=== PATIENT | female | born 1995 ===

== ENCOUNTER 2020-01-14 10:07 | Emergency (ER) | payer OTHER, SELFPAY ==
[2020-01-14 10:26] VITALS: BP 134/67; PULSE 75; RESP 16; TEMP 36.3; O2SAT 99; BMI 41.0
[2020-01-14] MEDS: Azithromycin 500 MG TABLET 1000 MG PO (12:17)
[2020-01-14] MEDS: cefTRIAXone sodium 250 MG, Lidocaine HCl 1 % MPF 0.9 ML IM (12:18)
[2020-01-14 12:22] LABS: Glucose Urine UA NEG (NEG); Leukocyte Esterase Urine NEG (NEG); Nitrite Urine NEG (NEG); Specific Gravity - Urine <= 1.005 (1.005-1.025); Urine Blood 2+ (NEG); Urine Ketones NEG (NEG); Urine Protein NEG (NEG-TRACE)
[2020-01-14 12:28] LABS: Appearance Urine CLEAR; Color Urine YELLOW
--- NOTE | 2020-01-14 12:52 | ED_ITS ---
HPI - Female Genitourinary General Chief complaint: Urogenital-Female <Riaz Pereira NP - Last Filed: 01/14/20 14:17> Stated complaint: STD <Riaz Pereira NP - Last Filed: 01/14/20 14:17> Time Seen by Provider: 01/14/20 11:15 <Riaz Pereira NP - Last Filed: 01/14/20 14:17> Source: patient <Riaz Pereira NP - Last Filed: 01/14/20 14:17> Mode of arrival: ambulatory <Riaz Pereira NP - Last Filed: 01/14/20 14:17> Limitations: no limitations <Riaz Pereira NP - Last Filed: 01/14/20 14:17> History of Present Illness HPI Narrative: Otherwise healthy 24-year-old female with no past medical/surgical problems not currently taking any medications presenting ambulatory via triage 2 minor Care with complaint of states she was informed this morning by an individual she was sexually active with (male) on he texted her that he tested positive for mycoplasma genitalia <Riaz Pereira NP - Last Filed: 01/14/20 14:17> Related Data Home medications: Previous Rx's Medication Instructions Recorded doxycycline monohydrate 100 mg PO BID 7 Days #14 cap 01/14/20 metronidazole [Flagyl] 500 mg PO BID 7 Days #14 tab 01/16/20 <Riaz Pereira NP - Last Filed: 01/14/20 14:17> Allergies/Adverse reactions: Allergies Allergy/AdvReac Type Severity Reaction Status Date / Time No Known Allergies Allergy Unverified 11/14/19 16:34 [No Known Allergies*] <Riaz Pereira NP - Last Filed: 01/14/20 14:17> Review of Systems Review of Systems: Constitutional: No Weight loss, No Fever, No Chills, No Night Sweats, No Fatigue, No Malaise ENT/Mouth: No Hearing loss, No Ear Pain, No Nasal Congestion Eyes: No Eye Pain, No Swelling, No Redness Cardiovascular: No Chest Pain, No SOB, No Dyspnea on Exertion, No Orthopnea, No Edema, No Palpitations Respiratory: No Cough, No Sputum, No Wheezing, No Smoke Exposure, No Dyspnea Gastrointestinal: No Nausea, No Vomiting, No Diarrhea, No Constipation, No abdominal Pain Genitourinary: no irregular bleeding, No Dysuria, No Urinary Frequency, No Hematuria, No Urinary Incontinence, No Urgency, No Flank Pain, No Urinary Flow Changes, No Hesitancy Musculoskeletal: No joint pain, No Myalgias, No Joint Swelling Skin: No Skin Lesions, No rash Neuro: No Headache Psych: No Anxiety/Panic Heme/Lymph: No Bruising, No Bleeding,No Lymphadenopathy Endocrine: No Polyuria, No Polydipsia, No Temperature Intolerance <Riaz Pereira NP - Last Filed: 01/14/20 14:17> Yes all other systems are reviewed and are negative <Riaz Pereira NP - Last Filed: 01/14/20 14:17> PMFSH Past Medical History Attestation statement: The following information was validated with the patient. <Riaz Pereira NP - Last Filed: 01/14/20 14:17> Medical History: Medical History (Updated 01/15/20 @ 00:00 by Dora Baker) No known health problems <Riaz Pereira NP - Last Filed: 01/14/20 14:17> Social History Social History: Social History Advance Directives: No Advance Directives Information Provided: No <Riaz Pereira NP - Last Filed: 01/14/20 14:17> Physical Exam Vital Signs: Vital Signs: Last Vital Signs Temp 97.8 F 01/14/20 13:30 Pulse 77 01/14/20 13:30 Resp 16 01/14/20 13:30 BP 112/72 01/14/20 13:30 Pulse Ox 100 01/14/20 13:30 Body Mass Index 41.0 Reviewed <Riaz Pereira NP - Last Filed: 01/14/20 14:17> Vital Signs: Last Vital Signs Temp 97.8 F 01/14/20 13:30 Pulse 77 01/14/20 13:30 Resp 16 01/14/20 13:30 BP 112/72 01/14/20 13:30 Pulse Ox 100 01/14/20 13:30 Body Mass Index 41.0 <JAGRUTI Brar - Last Filed: 01/16/20 10:08> Vital Signs: Last Vital Signs Temp 97.8 F 01/14/20 13:30 Pulse 77 01/14/20 13:30 Resp 16 01/14/20 13:30 BP 112/72 01/14/20 13:30 Pulse Ox 100 01/14/20 13:30 Body Mass Index 41.0 <Wade Kline MD - Last Filed: 01/20/20 07:27> Const: General: cooperative and healthy appearing; No acute distress or intoxicated appearing <[facility] - Last Filed: 01/14/20 14:17> Nutritional Appearance: average body habitus <[facility] - Last Filed: 01/14/20 14:17> Orientation/consciousness: patient oriented x3 <[facility] - Last Filed: 01/14/20 14:17> HENMT: Head: Yes normal to inspection <[facility] - Last Filed: 01/14/20 14:17> Ears: hearing grossly normal bilaterally <[facility] - Last Filed: 01/14/20 14:17> Chest: Chest palpation & inspection: normal inspection of the chest <[facility] - Last Filed: 01/14/20 14:17> Resp: Effort & Inspection: normal respiratory effort <[facility] - Last Filed: 01/14/20 14:17> Cardio: Jugular venous distension: no JVD <[facility] - Last Filed: 01/14/20 14:17> GI: Inspection: Yes normal to inspection <[facility] - Last Filed: 01/14/20 14:17> Percussion: Yes normal to percussion <[facility] - Last Filed: 01/14/20 14:17> Auscultation: normal bowel sounds <[facility] - Last Filed: 01/14/20 14:17> : General: Yes no CVA tenderness <[facility] - Last Filed: 01/14/20 14:17> Back/Spine/Pelvis: Back: no CVA tenderness <[facility] - Last Filed: 01/14/20 14:17> Skin: General skin exam: no rashes or lesions noted <[facility] - Last Filed: 01/14/20 14:17> Neuro: General: patient oriented x3 <Riaz Pereira NP - Last Filed: 01/14/20 14:17> Extrem: General: Yes normal to inspection <Riaz Pereira NP - Last Filed: 01/14/20 14:17> Course Course Course Narrative: UA/swabs obtained for CT Cleo, mycoplasma genitalia, BV. Urine negative. Empirically treated for CT/ NG with azithromycin/ceftriaxone. Also given doxycycline for mycoplasma. Will start on b.i.d. dose for 7 days. Discharge home with clear precaution return follow-up instructions. Advised no further sexual intercourse until cleared by Health Center. <Riaz Pereira NP - Last Filed: 01/14/20 14:17> I have reviewed the chart <Wade Kline MD - Last Filed: 01/20/20 07:27> MDM - Female Genitourinary Lab Data Labs: Lab Results 01/14/20 01/14/20 01/14/20 Range/Units 11:52 11:52 11:54 Urine Color YELLOW Urine Appearance CLEAR Urine pH 6.0 (5.0-8.0) Ur Specific [place] <= 1.005 (1.005-1.025) Urine Protein NEG (NEG-TRACE) MG/DL Urine Glucose (UA) NEG (NEG) MG/DL Urine Ketones NEG (NEG) MG/DL Urine Blood 2+ H (NEG) Urine Nitrite NEG (NEG) Ur Leukocyte Esterase NEG (NEG) Urine RBC 1-4 (0) /HPF Urine WBC 0 (0-4) /HPF Ur Squamous Epith Cells 2+ /LPF Urine Bacteria NONE /LPF Urine Test NEGATIVE (NEGATIVE) Shara species DNA Negative (Negative) Chlam trachomat DNA PCR NOT DETECTED (Not Detect.) Gardnerella DNA Probe Positive A (Negative) N.gonorrhoeae DNA (PCR) NOT DETECTED (Not Detect.) Trichomonas DNA Probe Negative (Negative) <Riaz Pereira NP - Last Filed: 01/14/20 14:17> Lab Results 01/14/20 01/14/20 01/14/20 Range/Units 11:52 11:52 11:54 Urine Color YELLOW Urine Appearance CLEAR Urine pH 6.0 (5.0-8.0) Ur Specific [place] <= 1.005 (1.005-1.025) Urine Protein NEG (NEG-TRACE) MG/DL Urine Glucose (UA) NEG (NEG) MG/DL Urine Ketones NEG (NEG) MG/DL Urine Blood 2+ H (NEG) Urine Nitrite NEG (NEG) Ur Leukocyte Esterase NEG (NEG) Urine RBC 1-4 (0) /HPF Urine WBC 0 (0-4) /HPF Ur Squamous Epith Cells 2+ /LPF Urine Bacteria NONE /LPF Urine Test NEGATIVE (NEGATIVE) Shaar species DNA Negative (Negative) Chlam trachomat DNA PCR NOT DETECTED (Not Detect.) Gardnerella DNA Probe Positive A (Negative) N.gonorrhoeae DNA (PCR) NOT DETECTED (Not Detect.) Trichomonas DNA Probe Negative (Negative) <JAGRUTI Brar - Last Filed: 01/16/20 10:08> Lab Results 01/14/20 01/14/20 01/14/20 Range/Units 11:52 11:52 11:54 Urine Color YELLOW Urine Appearance CLEAR Urine pH 6.0 (5.0-8.0) Ur Specific [place] <= 1.005 (1.005-1.025) Urine Protein NEG (NEG-TRACE) MG/DL Urine Glucose (UA) NEG (NEG) MG/DL Urine Ketones NEG (NEG) MG/DL Urine Blood 2+ H (NEG) Urine Nitrite NEG (NEG) Ur Leukocyte Esterase NEG (NEG) Urine RBC 1-4 (0) /HPF Urine WBC 0 (0-4) /HPF Ur Squamous Epith Cells 2+ /LPF Urine Bacteria NONE /LPF Urine Test NEGATIVE (NEGATIVE) Shara species DNA Negative (Negative) Chlam trachomat DNA PCR NOT DETECTED (Not Detect.) Gardnerella DNA Probe Positive A (Negative) N.gonorrhoeae DNA (PCR) NOT DETECTED (Not Detect.) Trichomonas DNA Probe Negative (Negative) <Wade Kline MD - Last Filed: 01/20/20 07:27> Discharge Plan Discharge Clinical Impression: Encounter for assessment of STD exposure <Riaz Pereira NP - Last Filed: 01/14/20 14:17> Patient Disposition: Home, Self-Care <Riaz Pereira NP - Last Filed: 01/14/20 14:17> Instructions: Sexually Transmitted Diseases (ED) <Riaz Pereira NP - Last Filed: 01/14/20 14:17> Additional Instructions: Today your tested for several common STDs and empirically treated Please follow-up with the health center as discussed No sexual activity until you are clear Take antibiotic as prescribed We will call you with results only if positive Return if any concerns or worsening symptoms Thank <Riaz Pereira NP - Last Filed: 01/14/20 14:17> Prescriptions: New doxycycline monohydrate 100 mg capsule 100 mg PO BID 7 Days Qty: 14 RF: 0 metronidazole [Flagyl] 500 mg tablet 500 mg PO BID 7 Days Qty: 14 RF: 0 <Riaz Pereira NP - Last Filed: 01/14/20 14:17> Referrals: Physician,None [Primary Care Provider] - 2 days ([facility] Non-profit organization in [place], [place] Address: [address] [place] [address] Hours: Open ? Closes 7PM ) <Riaz Pereira NP - Last Filed: 01/14/20 14:17> Interventions: ED Discharge Assessment Last Done: 01/14/20 13:38 <Riaz Pereira NP - Last Filed: 01/14/20 14:17> Discharge Date/Time: 01/14/20 13:44 <Riaz Pereira NP - Last Filed: 01/14/20 14:17>
[2020-01-14 13:12] LABS: Squamous Epithelial Cell Urine 2+ /LPF; WBC Urine 0 /HPF (0-4)
[2020-01-14 13:30] VITALS: BP 112/72; PULSE 77; RESP 16; TEMP 36.6; O2SAT 100
[2020-01-14 13:50] LABS: UPreg QC Valid YES; Urine Pregnancy NEGATIVE (NEGATIVE)
[2020-01-14 13:56] LABS: BV Int Neg Control Negative (Negative); BV Int Pos Control Positive (Positive)
[2020-01-14 13:58] LABS: CT PCR NOT DETECTED (Not Detect.); NG PCR NOT DETECTED (Not Detect.)
== END 2020-01-14 13:44 | disposition home or self-care (01) ==
PROVIDERS: Nurse Practitioner Primary Care; Emergency Provider Emergency Medicine
DX: Z20.2 Contact with and (suspected) exposure to infections with a predominantly sexual mode of transmission (principal); Z79.899 Other long term (current) drug therapy
CPT/HCPCS: 81001; 81025; 87480; 87491; 87510; 87563; 87591; 87660; 87798; 96372; 99283; 99284; J0696

== ENCOUNTER 2020-09-22 17:16 | Emergency (ER) | payer OTHER, SELFPAY ==
[2020-09-22 18:21] VITALS: BP 117/62; PULSE 93; RESP 18; TEMP 37.2; O2SAT 98; BMI 37.0
[2020-09-22 18:46] LABS: IDNOW Serial# 08D9AD1C; Strep A Nucleic Acid Negative (Negative)
[2020-09-22 18:50] LABS: IDNOW Serial# 9DD0AD1C
[2020-09-22 18:51] LABS: COVID-19 Test Negative (Negative)
--- NOTE | 2020-09-22 19:58 | ED.GENADULT ---
HPI - General Adult General Chief complaint: Dental/Oral Stated complaint: throat pain Time Seen by Provider: 09/22/20 19:58 Source: patient Mode of arrival: ambulatory Limitations: no limitations History of Present Illness HPI narrative: 25 yo female with history of COVID-19 in July 2019 and recurrent Strep pharyngitis since then presents to the ER with 2 days of sore throat. She also has runny nose and nasal congestion. She has had Strep throat more times than she can count and is interested in a tonsillectomy. She does not have a PCP and has never been evaluated by ENT. She is eating and drinking normally with a normal voice. She reports seeing white spots on her tonsils and they are enlarged and painful. She has been taking Nyquil to help her sleep. No cough, SOB, chest pain or fevers. MD complaint: sore throat Onset (ago): day(s) (2) Location: mouth Radiation: non-radiation Severity: moderate Quality: stabbing and aching Pain Consistency: constant Relieving factors: medication Exacerbating factors: eating Associated symptoms: denies other symptoms Treatments prior to arrival: none Related Data Previous Rx's Medication Instructions Recorded doxycycline monohydrate 100 mg PO BID 7 Days #14 cap 01/14/20 metronidazole [Flagyl] 500 mg PO BID 7 Days #14 tab 01/16/20 amoxicillin 500 mg PO BID #14 tab 09/22/20 ibuprofen 600 mg PO Q8H PRN #10 tab 09/22/20 Allergies Allergy/AdvReac Type Severity Reaction Status Date / Time No Known Allergies Allergy Verified 09/22/20 18:21 [No Known Allergies*] Review of Systems Review of Systems: Constitutional: No Fever, No Chills ENT/Mouth: +sore throat, + Rhinorrhea, No Swallowing Difficulty Eyes: No Eye Pain, No Swelling, No Redness Cardiovascular: No Chest Pain, No SOB Respiratory: No Cough, No Sputum Gastrointestinal: No Nausea, No Vomiting, No Diarrhea, No abdominal Pain Musculoskeletal: No joint pain, No Myalgias Skin: No Skin Lesions, No rash Neuro: No Headache Heme/Lymph: No Lymphadenopathy PMFSH Past Medical History Attestation statement: The following information was validated with the patient. Medical History No known health problems Social History Social History Advance Directives: No Advance Directives Information Provided: No Patient : No Physical Exam Vital Signs: Vital Signs: Last Vital Signs Temp 98.9 F 09/22/20 18:21 Pulse 93 09/22/20 18:21 Resp 18 09/22/20 18:21 BP 117/62 09/22/20 18:21 Pulse Ox 98 09/22/20 18:21 Body Mass Index 37.0 Const: General: cooperative, healthy appearing, comfortable and no acute distress Nutritional Appearance: average body habitus HENMT: Head: Yes normal to inspection, Yes normocephalic and Yes atraumatic Ears: hearing grossly normal bilaterally, external ears normal and TM's normal bilaterally General nose exam: Normal external nose present, Normal nares present and Nasal discharge present clear bilateral Face and sinus: Yes normal facial exam and Yes sinuses nontender Mouth: Normal oral and palatal mucosa present, lip normal, tongue normal and moist mucous membranes Teeth and gingiva: dentition normal and gingiva normal Throat: Yes uvula midline, Yes abnormal tonsil, No peritonsillar mass, Yes posterior oropharynx abnormal and Yes postnasal drainage Eyes: General: appearance normal, both eyes and all related structures Neck: Neck: Yes normal visual inspection and Yes no lymphadenopathy Chest: Chest palpation & inspection: normal inspection of the chest Resp: Effort & Inspection: normal respiratory effort and able to speak in complete sentences Auscultation: clear to auscultation bilaterally Cardio: Rate: regular rate Rhythm: regular rhythm Skin: General skin exam: no rashes or lesions noted Extrem: General: Yes normal to inspection Psych: Appearance: grossly normal and well kempt Course Course Course Narrative: 25 y/o female presenting with sore throat x2 days. History of recurrent strep thoat. No evidence of peritonsillar abscess or RP abscess. Normal voice and handling secretions normally. COVID and Strep pending. Reevaluation(s) Reevaluation #1: COVID and Strep negative. She is very concerned about not being treated with antibiotics and worried that her symptoms will get worse. Given her history will plan to treat for possible Strep with amoxicillin. Will refer to ENT for further assessment. She is stable for discharge home. Medical Decision Making Lab Data Labs: Lab Results 09/22/20 09/22/20 Range/Units 18:28 18:28 COVID-19 (KRISTIN) Negative (Negative) COVID-19 Clin Com See Note S. pyogenes GrpA NIRALI Negative (Negative) Critical Care Time Critical Care Time Critical Care Time: No Discharge Plan Discharge Clinical Impression: Pharyngitis Qualifiers: Pharyngitis/tonsillitis etiology: unspecified etiology Qualified Code(s): J02.9 - Acute pharyngitis, unspecified Patient Disposition: Home, Self-Care Instructions: Pharyngitis (ED) Additional Instructions: Your COVID and Strep tests were negative. Given your history and your symptoms you are being treated with antibiotics for possible Strep. Take the prescribed antibiotic as directed. Use warm salt water gargles several times per day. Recommend over the counter Chloraseptic spray and/or Cepacol lozenges as needed for sore throat. Recommend ENT follow. If you develop new or worsening symptoms call 911 or come back to the ER for further evaluation. Prescriptions: New amoxicillin 500 mg tablet 500 mg PO BID Qty: 14 RF: 0 ibuprofen 600 mg tablet 600 mg PO Q8H PRN (Reason: fever or pain) Qty: 10 RF: 0 No Action doxycycline monohydrate 100 mg capsule 100 mg PO BID 7 Days Qty: 14 RF: 0 metronidazole [Flagyl] 500 mg tablet 500 mg PO BID 7 Days Qty: 14 RF: 0 Referrals: Mark Almanza [Physician] - 1 week (recurrent strep, requesting tonsillectomy )
== END 2020-09-22 20:39 | disposition home or self-care (01) ==
PROVIDERS: Emergency Provider Emergency Medicine
DX: J02.9 Acute pharyngitis, unspecified (principal); Z20.822 Contact with and (suspected) exposure to COVID-19
CPT/HCPCS: 36415; 87635; 87651; 99283

== ENCOUNTER 2021-09-20 16:54 | Emergency (ER) | payer OTHER, SELFPAY ==
--- NOTE | ~2021-09-20 | XR_ITS ---
EXAMINATION: XR CHEST CLINICAL INFORMATION: 3 weeks of cough COMPARISON: None TECHNIQUE: Frontal view of the chest was obtained. FINDINGS: The lungs are clear. No airspace consolidation, pleural effusion, or pneumothorax. The cardiomediastinal silhouette is within normal limits. No acute osseous injury. XR/XR chest 1V IMPRESSION: Unremarkable examination.
[2021-09-20 16:56] VITALS: BP 132/81; PULSE 95; RESP 18; TEMP 37.4; O2SAT 97; BMI 43.0
[2021-09-20 18:24] LABS: COVID-19 Test Negative (Negative); IDNOW Serial# 9DB6401D
--- NOTE | 2021-09-20 18:43 | ED.URI ---
HPI - URI/Sore Throat General Chief Complaint: Dyspnea Stated Complaint: chest tightness Time Seen by Provider: 09/20/21 18:34 Source: patient Mode of arrival: ambulatory Limitations: no limitations History of Present Illness HPI Narrative: 26 yo female with no significant medical problems presents to the ER for evaluation of a productive cough for the last 3 weeks. She states the cough started with green phlegm production and now it is more clear and white. She states the cough is worse at night and keeps her up at night. She also reports chest tightness when she lays down and takes a deep breath. She denies any fever, chills, chest pain, sore throat, body aches, known sick contacts. No history of seasonal allergies. She smokes marijuana but not cigarettes. No hx asthma. MD elicited complaint: cough Onset (ago): week(s) (3) Consistency: intermittent Severity: moderate Description of mucous: clear and watery Able to tolerate fluids by mouth: Yes Exacerbating factors: supine positioning Relieving factors: OTC cold medicine Associated symptoms: denies other symptoms Treatments prior to arrival: none Related Data Previous Rx's Medication Instructions Recorded doxycycline monohydrate 100 mg 100 mg PO BID 7 days #14 caps 01/14/20 capsule metronidazole 500 mg tablet 500 mg PO BID bacterial vaginosis 01/16/20 (Flagyl) 7 days #14 tabs amoxicillin 500 mg tablet 500 mg PO BID #14 tabs 09/22/20 ibuprofen 600 mg tablet 600 mg PO Q8H PRN fever or pain 09/22/20 #10 tabs azithromycin 250 mg tablet See Rx Instructions PO .COMPLEX #6 09/20/21 (Zithromax Z-Nic) tabs cetirizine 10 mg tablet (Allergy 10 mg PO DAILY #30 tabs 09/20/21 Relief (cetirizine)) hydrocodone-homatropine 5 mg-1.5 5 ml PO Q6H PRN cough #60 mL 09/20/21 mg/5 mL (5 mL) oral syrup (Hycodan) Allergies Allergy/AdvReac Type Severity Reaction Status Date / Time No Known Allergies Allergy Verified 09/22/20 18:21 [No Known Allergies*] Review of Systems Review of Systems: Constitutional: No Fever, No Chills ENT/Mouth: No sore throat, No Rhinorrhea, No Swallowing Difficulty Eyes: No Eye Pain, No Swelling, No Redness Cardiovascular: No Chest Pain, No SOB, No Orthopnea, No Edema Respiratory: + Cough, + Sputum, No Wheezing, No dyspnea Gastrointestinal: No Nausea, No Vomiting, No Diarrhea, No abdominal Pain Musculoskeletal: No joint pain, No Myalgias Skin: No Skin Lesions, No rash Neuro: No Weakness, No Numbness, No Dizziness, No Headache Heme/Lymph: No Bruising, No Lymphadenopathy PMFSH Past Medical History Medical History No known health problems Social History Social History Advance Directives: No Advance Directives Information Provided: No Physical Exam Vital Signs: Vital Signs: Last Vital Signs Temp 99.4 F 09/20/21 16:56 Pulse 95 09/20/21 16:56 Resp 18 09/20/21 16:56 BP 132/81 09/20/21 16:56 Pulse Ox 97 09/20/21 16:56 O2 Del Method 09/20/21 16:56 BMI result Body Mass Index 43.0 Appearance: Alert. Oriented X3. No acute distress. Eyes: Pupils equal, round and reactive to light. ENT: Pharynx with generalized posterior erythema, no tonsillar exudate or swelling, uvula midline, normal voice Neck: Normal inspection. Neck supple. CVS: Normal heart rate and rhythm. Pulses normal. Respiratory: No respiratory distress. Breath sounds normal. Skin: Skin warm and dry. Normal skin color. Normal skin turgor. No rashes. Extremities: No lower extremity edema. No calf tenderness Neuro: Oriented X 3. grossly normal, nonfocal Course Course Course Narrative: 26 yo female presenting to the ER with productive cough x3 weeks, worse at night. On exam her VS are normal and her lungs are clear. No hx seasonal allergies but given worse at night it may be related to post-nasal drip. She had a CXR performed which was clear and a COVID test that was negative today. She appears well. PERC negative. Will plan to start trial of certrizine, antitussive and Z-nic for possible bronchitis. She agrees with plan and is stable for d/c home. MDM - URI/Sore Throat Lab Data Labs: Lab Results 09/20/21 Range/Units 17:48 COVID-19 (KRISTIN) Negative (Negative) COVID-19 Clin Com See Note Critical Care Time Critical Care Time Critical Care Time: No Discharge Plan Discharge Clinical Impression: Acute cough Patient Disposition: Home, Self-Care Instructions: Acute Cough (ED) Additional Instructions: Your chest x-ray today was normal. Your COVID test was negative. Recommend starting the prescribed medications as directed. Do not drive after taking the cough medication, it can make you sleepy. Only take this before bed. Recommend trial of not smoking any marijuana for 1 week and see if this helps your cough. Recommend following up with a Primary Care Doctor for further evaluation and treatment if no improvement in 1-2 weeks. If you develop new or worsening symptoms call 911 or come back to the ER for further evaluation. Prescriptions: New azithromycin [Zithromax Z-Nic] 250 mg tablet See Rx Instructions .ROUTE .COMPLEX Qty: 6 0RF Rx Instructions: take 500 mg today (day 1), then 250 mg for 4 days (days 2-5) cetirizine [Allergy Relief (cetirizine)] 10 mg tablet 10 mg PO DAILY Qty: 30 0RF hydrocodone-homatropine [Hycodan] 5-1.5 mg/5 mL (5 mL) syrup 5 ml PO Q6H PRN (Reason: cough) Qty: 60 0RF Rx Instructions: Partial Fill upon patient request. No Action doxycycline monohydrate 100 mg capsule 100 mg PO BID 7 Days Qty: 14 0RF metronidazole [Flagyl] 500 mg tablet 500 mg PO BID 7 Days Qty: 14 0RF amoxicillin 500 mg tablet 500 mg PO BID Qty: 14 0RF ibuprofen 600 mg tablet 600 mg PO Q8H PRN (Reason: fever or pain) Qty: 10 0RF
== END 2021-09-20 19:30 | disposition home or self-care (01) ==
PROVIDERS: Emergency Provider Emergency Medicine
DX: R06.02 Shortness of breath (principal); R05.9 Cough, unspecified; Z79.899 Other long term (current) drug therapy; Z20.822 Contact with and (suspected) exposure to COVID-19
CPT/HCPCS: 71045; 87635; 99282; 99283

== ENCOUNTER 2021-12-06 15:46 | Emergency (ER) | payer OTHER, SELFPAY ==
--- NOTE | ~2021-12-06 | CT_ITS ---
EXAMINATION: CT ABDOMEN AND PELVIS WITHOUT CONTRAST CLINICAL INFORMATION: Flank pain. COMPARISON: CT abdomen/pelvis dated from 06/30/2017. TECHNIQUE: Multidetector volumetric imaging was performed from the superior aspect of the liver through the pubic symphysis. Sagittal and coronal reformatted images were obtained on the technologist's workstation. This CT examination was performed using dose optimization techniques as appropriate, variously including the following: *Automated exposure control *Adjustment of mA and/or kV according to patient size (this includes techniques or standardized protocols for targeted exams where dose is matched to indication/reason for exam; i.e. extremities or head) *Use of iterative reconstruction technique DLP: 887 mGy-cm FINDINGS: LUNG BASES: The visualized lung bases are unremarkable. LIVER, GALLBLADDER, AND BILIARY TREE: The liver is normal in size, shape, and attenuation. No focal hepatic lesion or biliary ductal dilatation is present. The gallbladder is unremarkable with no evidence of radiopaque gallstones, gallbladder wall thickening, or obvious pericholecystic inflammatory changes. PANCREAS: Unremarkable. SPLEEN: Unremarkable. ADRENAL GLANDS: Unremarkable. KIDNEYS AND URETERS: The kidneys are normal in size, shape, and attenuation. No hydronephrosis, hydroureter, or calculi seen. No perinephric stranding. BLADDER: Decompressed limiting its evaluation. However, there appears to be diffuse urinary bladder wall thickening with mild perivesical fat stranding. GASTROINTESTINAL TRACT: Small hiatal hernia. The stomach and the small bowel are nondilated. Normal appendix. No pericolic inflammatory changes. No evidence of bowel obstruction. ABDOMINAL WALL: No significant hernia is appreciated. LYMPH NODES: No lymphadenopathy by size criteria. VASCULAR: Limited noncontrast examination. The abdominal aorta is of normal caliber. PELVIC VISCERA: Unremarkable. OSSEOUS STRUCTURES: No acute or aggressive appearing osseous abnormalities. CT/CT abdomen pelvis wo IV con IMPRESSION: Diffuse urinary bladder wall thickening. Correlate clinically and if indicated with urinalysis. Small hiatal hernia. No nephrolithiasis or hydronephrosis.
[2021-12-06 16:02] VITALS: BP 117/53; PULSE 78; RESP 18; TEMP 37.3; O2SAT 98; BMI 39.0
[2021-12-06 16:16] LABS: MANUAL DIFF FLAG NO
[2021-12-06 16:17] LABS: Basophils Absolute Auto 0.1 X10*3/uL (0.0-0.2); Basophils Percent Auto 0.8 % (0-2); Eosinophils Absolute Auto 0.1 X10*3/uL (0.0-0.4); Eosinophils Percent Auto 0.8 % (0-4); Hematocrit 41.1 % (37.0-47.0); Hemoglobin 13.7 g/dl (12.0-16.0); Imm Gran Abs Auto 0.03 X10*3/uL (0.00-0.03); Imm Gran Pct Auto 0.3 % (0.0-0.4); Lymphocytes Absolute Auto 1.8 X10*3/uL (1.2-4.9); Lymphocytes Percent Auto 16.7 % (20-40); Mean Corpuscular HGB Conc 33.3 g/dl (31.0-35.0); Mean Corpuscular Hemoglobin 29.8 pg (27.0-33.0); Mean Corpuscular Volume 89.5 fL (80.0-98.0); Mean Platelet Volume 10.7 fL (9.4-12.3); Monocytes Absolute Auto 0.5 X10*3/uL (0.1-1.2); Monocytes Percent Auto 5.1 % (2-11); Neutrophils Absolute Auto 8.1 x10*3/uL (2.0-8.3); Neutrophils Percent Auto 76.3 % (45-73); Platelet Count 300 X10*3/uL (160-400); Red Blood Count 4.59 X10*6/uL (4.20-5.50); Red Cell Distribution Width 12.2 % (11.0-16.0); White Blood Count 10.5 X10*3/uL (4.8-10.8)
[2021-12-06 16:28] LABS: Appearance Urine Cloudy; Color Urine Yellow; Glucose Urine UA Negative (Negative); Leukocyte Esterase Urine Large (3+) (Negative); Nitrite Urine Negative (Negative); Specific Gravity - Urine 1.015 (1.005-1.025); UMIC TRIGGER UACC YES; Urine Blood Moderate (2+) (Negative); Urine Ketones Negative (Negative); Urine Protein 30 (1+) mg/dL (Neg-Trace)
[2021-12-06 16:30] LABS: Bacteria Urine Trace (None Seen); Hyaline Casts Urine 0-2 /LPF (0-2); RBC Urine >20 /HPF (0-2); Squamous Epithelial Cell Urine 0-2 /HPF (0-2); UACC Culture Trigger YES; WBC Urine >50 /HPF (0-5)
[2021-12-06 16:31] LABS: Anion Gap 15 (12-20); Blood Urea Nitrogen 12 mg/dL (9-16); Calcium 9.1 mg/dL (8.4-10.2); Carbon Dioxide 23 mmol/L (22-29); Chloride 104 mmol/L (96-108); Creatinine Clr Calc Pharmacy 122.6; Estimated Glomerular Filt Rate > 60; Glucose Random 90 mg/dL (60-115); Potassium 4.4 mmol/L (3.3-5.1); Sodium 138 mmol/L (135-145)
[2021-12-06 23:26] VITALS: BP 112/68; PULSE 86; RESP 18; TEMP 36.4; O2SAT 99
--- NOTE | 2021-12-06 23:41 | ED.FEMALEGU ---
HPI - Female Genitourinary General Chief complaint: Urogenital-Female Stated complaint: Lower abdominal pain Time Seen by Provider: 12/06/21 23:35 Source: patient Mode of arrival: ambulatory Limitations: no limitations History of Present Illness HPI Narrative: Patient with no known significant past medical history been having right lower abdominal right flank pain for last 2 days getting worse now no history of kidney stone had noticed small amount of blood in the urine hesitancy frequency and dysuria no fever or chills Related Data Previous Rx's Medication Instructions Recorded doxycycline monohydrate 100 mg 100 mg PO BID 7 days #14 caps 01/14/20 capsule metronidazole 500 mg tablet 500 mg PO BID bacterial vaginosis 01/16/20 (Flagyl) 7 days #14 tabs amoxicillin 500 mg tablet 500 mg PO BID #14 tabs 09/22/20 ibuprofen 600 mg tablet 600 mg PO Q8H PRN fever or pain 09/22/20 #10 tabs azithromycin 250 mg tablet See Rx Instructions PO .COMPLEX #6 09/20/21 (Zithromax Z-Nic) tabs cetirizine 10 mg tablet (Allergy 10 mg PO DAILY #30 tabs 09/20/21 Relief (cetirizine)) hydrocodone-homatropine 5 mg-1.5 5 ml PO Q6H PRN cough #60 mL 09/20/21 mg/5 mL (5 mL) oral syrup (Hycodan) ibuprofen 600 mg tablet 600 mg PO Q6-8H PRN pain #20 tabs 12/07/21 levofloxacin 500 mg tablet 500 mg PO DAILY 5 days #5 tabs 12/07/21 phenazopyridine 200 mg tablet 200 mg PO TID 2 days #5 tabs 12/07/21 (Pyridium) Allergies Allergy/AdvReac Type Severity Reaction Status Date / Time No Known Allergies Allergy Verified 09/22/20 18:21 [No Known Allergies*] Review of Systems Review of Systems: Yes all other systems are reviewed and are negative PMFSH Past Medical History Medical History No known health problems Social History Social History Advance Directives: No Patient : No Physical Exam Vital Signs: Vital Signs: Last Vital Signs Temp 98.2 F 12/07/21 01:49 Pulse 85 12/07/21 01:49 Resp 16 12/07/21 01:49 BP 130/72 12/07/21 01:49 Pulse Ox 99 12/07/21 01:49 O2 Del Method 12/07/21 01:49 BMI result Body Mass Index 39.0 Appearance: Alert. Oriented X3. No acute distress. Eyes: PERRLA, No Nystagmus ENT: Pharynx normal. Oral Mucosa moist Neck: Normal inspection. Neck supple. CVS: Normal heart rate and rhythm. Pulses normal. Respiratory: No respiratory distress. Equal air entry bilateral, no wheezing/rales/rhonchi Abdomen: Soft and nontender. Bowel sounds are present, no mass palpable, mild right CVA tenderness Skin: Skin warm and dry. Normal skin color. Normal skin turgor. Extremities: No lower extremity edema. No calf tenderness Neuro: Oriented X 3. No motor deficit. No sensory deficit.No cerebellar signs , cranial nerves II-XII intact MDM - Female Genitourinary MDM Narrative Medical decision making narrative: CT scan negative for kidney stone discharge patient home on Levaquin Lab Data Attestation: I reviewed the patient's lab results. Result diagrams: 12/06/21 16:12 12/06/21 16:12 Labs: Lab Results 12/06/21 12/06/21 12/06/21 Range/Units 16:12 16:12 16:22 WBC 10.5 (4.8-10.8) X10*3/uL RBC 4.59 (4.20-5.50) X10*6/uL Hgb 13.7 (12.0-16.0) g/dl Hct 41.1 (37.0-47.0) % MCV 89.5 (80.0-98.0) fL MCH 29.8 (27.0-33.0) pg MCHC 33.3 (31.0-35.0) g/dl RDW 12.2 (11.0-16.0) % Plt Count 300 (160-400) X10*3/uL MPV 10.7 (9.4-12.3) fL Immature Gran % (Auto) 0.3 (0.0-0.4) % Neut % (Auto) 76.3 H (45-73) % Lymph % (Auto) 16.7 L (20-40) % Jerome % (Auto) 5.1 (2-11) % Eos % (Auto) 0.8 (0-4) % Baso % (Auto) 0.8 (0-2) % Lymph # (Auto) 1.8 (1.2-4.9) X10*3/uL Jerome # (Auto) 0.5 (0.1-1.2) X10*3/uL Eos # (Auto) 0.1 (0.0-0.4) X10*3/uL Baso # (Auto) 0.1 (0.0-0.2) X10*3/uL Abs Immat Gran (auto) 0.03 (0.00-0.03) X10*3/uL Absolute Neuts (auto) 8.1 (2.0-8.3) x10*3/uL Absolute Nucleated RBC 0.000 (0.0-0.012) X10*3/uL Nucleated RBC % (auto) 0.0 (0.0-0.2) /100WBC Sodium 138 (135-145) mmol/L Potassium 4.4 (3.3-5.1) mmol/L Chloride 104 (96-108) mmol/L Carbon Dioxide 23 (22-29) mmol/L Anion Gap 15 (12-20) BUN 12 (9-16) mg/dL Creatinine 0.71 (0.5-1.4) mg/dL Estim Creat Clear Calc 122.6 Estimated GFR > 60 Random Glucose 90 (60-115) mg/dL Calcium 9.1 (8.4-10.2) mg/dL Urine Color Yellow Urine Appearance Cloudy Urine pH 7.0 (5.0-9.0) Ur Specific [place] 1.015 (1.005-1.025) Urine Protein 30 (1+) H (Neg-Trace) mg/dL Urine Glucose (UA) Negative (Negative) mg/dL Urine Ketones Negative (Negative) mg/dL Urine Blood Moderate (2+) H (Negative) Urine Nitrite Negative (Negative) Ur Leukocyte Esterase Large (3+) H (Negative) Urine RBC >20 H (0-2) /HPF Urine WBC >50 H (0-5) /HPF Ur Squamous Epith Cells 0-2 (0-2) /HPF Urine Bacteria Trace (None Seen) Hyaline Casts 0-2 (0-2) /LPF Urine Test (NEGATIVE) 12/06/21 Range/Units 16:22 WBC (4.8-10.8) X10*3/uL RBC (4.20-5.50) X10*6/uL Hgb (12.0-16.0) g/dl Hct (37.0-47.0) % MCV (80.0-98.0) fL MCH (27.0-33.0) pg MCHC (31.0-35.0) g/dl RDW (11.0-16.0) % Plt Count (160-400) X10*3/uL MPV (9.4-12.3) fL Immature Gran % (Auto) (0.0-0.4) % Neut % (Auto) (45-73) % Lymph % (Auto) (20-40) % Jerome % (Auto) (2-11) % Eos % (Auto) (0-4) % Baso % (Auto) (0-2) % Lymph # (Auto) (1.2-4.9) X10*3/uL Jerome # (Auto) (0.1-1.2) X10*3/uL Eos # (Auto) (0.0-0.4) X10*3/uL Baso # (Auto) (0.0-0.2) X10*3/uL Abs Immat Gran (auto) (0.00-0.03) X10*3/uL Absolute Neuts (auto) (2.0-8.3) x10*3/uL Absolute Nucleated RBC (0.0-0.012) X10*3/uL Nucleated RBC % (auto) (0.0-0.2) /100WBC Sodium (135-145) mmol/L Potassium (3.3-5.1) mmol/L Chloride (96-108) mmol/L Carbon Dioxide (22-29) mmol/L Anion Gap (12-20) BUN (9-16) mg/dL Creatinine (0.5-1.4) mg/dL Estim Creat Clear Calc Estimated GFR Random Glucose (60-115) mg/dL Calcium (8.4-10.2) mg/dL Urine Color Urine Appearance Urine pH (5.0-9.0) Ur Specific [place] (1.005-1.025) Urine Protein (Neg-Trace) mg/dL Urine Glucose (UA) (Negative) mg/dL Urine Ketones (Negative) mg/dL Urine Blood (Negative) Urine Nitrite (Negative) Ur Leukocyte Esterase (Negative) Urine RBC (0-2) /HPF Urine WBC (0-5) /HPF Ur Squamous Epith Cells (0-2) /HPF Urine Bacteria (None Seen) Hyaline Casts (0-2) /LPF Urine Test NEGATIVE (NEGATIVE) Discharge Plan Discharge Clinical Impression: Urinary tract infection Patient Disposition: Home, Self-Care Instructions: Urinary Tract Infection in Women (ED) Additional Instructions: Drink plenty of fluids Levaquin daily for 5 days Ibuprofen for pain Report to the ER/pcp if gets worse Prescriptions: New levofloxacin 500 mg tablet 500 mg PO DAILY 5 Days Qty: 5 0RF phenazopyridine [Pyridium] 200 mg tablet 200 mg PO TID 2 Days Qty: 5 0RF ibuprofen 600 mg tablet 600 mg PO Q6-8H PRN (Reason: pain) Qty: 20 0RF No Action doxycycline monohydrate 100 mg capsule 100 mg PO BID 7 Days Qty: 14 0RF metronidazole [Flagyl] 500 mg tablet 500 mg PO BID 7 Days Qty: 14 0RF amoxicillin 500 mg tablet 500 mg PO BID Qty: 14 0RF ibuprofen 600 mg tablet 600 mg PO Q8H PRN (Reason: fever or pain) Qty: 10 0RF azithromycin [Zithromax Z-Nic] 250 mg tablet See Rx Instructions .ROUTE .COMPLEX Qty: 6 0RF Rx Instructions: take 500 mg today (day 1), then 250 mg for 4 days (days 2-5) cetirizine [Allergy Relief (cetirizine)] 10 mg tablet 10 mg PO DAILY Qty: 30 0RF hydrocodone-homatropine [Hycodan] 5-1.5 mg/5 mL (5 mL) syrup 5 ml PO Q6H PRN (Reason: cough) Qty: 60 0RF Rx Instructions: Partial Fill upon patient request. Stand Alone Forms: Work/School Release Interventions: ED Discharge Assessment Last Done: 12/07/21 01:50 Discharge Date/Time: 12/07/21 01:51
[2021-12-07] MEDS: levoFLOXacin 500 MG TABLET PO (00:01)
[2021-12-07 00:18] LABS: UPreg QC Valid YES; Urine Pregnancy NEGATIVE (NEGATIVE)
[2021-12-07] MEDS: Ibuprofen 600 MG TABLET PO (01:43)
[2021-12-07] MEDS: Phenazopyridine HCL 200 MG TABLET PO (01:44)
[2021-12-07 01:49] VITALS: BP 130/72; PULSE 85; RESP 16; TEMP 36.8; O2SAT 99
== END 2021-12-07 01:51 | disposition home or self-care (01) ==
PROVIDERS: Emergency Provider Internal Medicine
DX: N39.0 Urinary tract infection, site not specified (principal); B95.7 Other staphylococcus as the cause of diseases classified elsewhere; R10.31 Right lower quadrant pain
CPT/HCPCS: 36415; 74176; 80048; 81001; 81025; 85025; 87086; 87088; 87186; 99284

== ENCOUNTER 2023-09-29 14:07 | Emergency (ER) | payer OTHER, SELFPAY ==
--- NOTE | ~2023-09-29 | XR_ITS ---
EXAMINATION: XR CHEST CLINICAL INFORMATION: Cough and shortness of breath. COMPARISON: Chest radiograph dated 09/20/2021. TECHNIQUE: 2 views of the chest were obtained. FINDINGS: The heart is normal in size. The lungs are clear. There is no pleural effusion or pneumothorax. There is no acute osseous abnormality. XR/XR chest 2V IMPRESSION: No acute cardiopulmonary disease.
--- NOTE | 2023-09-29 14:09 | ED_ITS ---
HPI - URI/Sore Throat General Chief Complaint: Upper Respiratory Symptoms Stated Complaint: excess phlem Time Seen by Provider: 09/29/23 14:15 Source: patient Mode of arrival: ambulatory Limitations: no limitations History of Present Illness HPI Narrative: Patient is a 28-year-old female who presents to the emergency department for evaluation of productive x4 weeks. Started with a sore throat this resolved but cough has lingered states initially is yellow, term 2 white/clear, and now is with large clumps of green phlegm. Has tried NyQuil and DayQuil without much improvement. Reports difficulty breathing at night she is lying flat Denies fevers or chills. concerned for pneumonia Related Data Previous Rx's ?Medication ?Instructions ?Recorded doxycycline monohydrate 100 mg 100 mg PO BID 7 days #14 caps 01/14/20 capsule metronidazole 500 mg tablet 500 mg PO BID bacterial vaginosis 01/16/20 (Flagyl) 7 days #14 tabs amoxicillin 500 mg tablet 500 mg PO BID #14 tabs 09/22/20 ibuprofen 600 mg tablet 600 mg PO Q8H PRN fever or pain 09/22/20 #10 tabs azithromycin 250 mg tablet See Rx Instructions PO .COMPLEX #6 09/20/21 (Zithromax Z-Nic) tabs cetirizine 10 mg tablet (Allergy 10 mg PO DAILY #30 tabs 09/20/21 Relief (cetirizine)) hydrocodone-homatropine 5 mg-1.5 5 ml PO Q6H PRN cough #60 mL 09/20/21 mg/5 mL (5 mL) oral syrup (Hycodan) ibuprofen 600 mg tablet 600 mg PO Q6-8H PRN pain #20 tabs 12/07/21 levofloxacin 500 mg tablet 500 mg PO DAILY 5 days #5 tabs 12/07/21 phenazopyridine 200 mg tablet 200 mg PO TID 2 days #5 tabs 12/07/21 (Pyridium) azithromycin 250 mg tablet See Rx Instructions PO .COMPLEX #6 09/29/23 tabs guaifenesin 1,200 mg tablet, 1,200 mg PO BID #20 tabs 09/29/23 extended release 12 hr (Mucinex) hydrocodone-homatropine 5 mg-1.5 5 ml PO Q6H PRN cough #200 mL 09/29/23 mg/5 mL (5 mL) oral syrup (Hycodan) Allergies Allergy/AdvReac Type Severity Reaction Status Date / Time No Known Allergies Allergy Verified 09/29/23 14:16 [No Known Allergies*] Review of Systems Review of Systems: Yes all other systems are reviewed and are negative [facility] Past Medical History Attestation statement: The following information was validated with the patient. Source: old records reviewed Medical History No known health problems Social History Social History (System 12/10/21 @ 10:12 by Janey Lance) Advance Directives: No Advance Directives Information Provided: Yes Physical Exam Vital Signs: Vital Signs: Last Vital Signs Temp 96.8 F 09/29/23 14:13 Pulse 83 09/29/23 14:13 Resp 16 09/29/23 14:13 BP 119/67 09/29/23 14:13 Pulse Ox 95 09/29/23 14:13 O2 Del Method Room Air 09/29/23 14:13 BMI result Body Mass Index 47.7 Appearance: Alert.?Oriented to person, place and time. No acute distress.?Normal affect. Eyes: Pupils equal, round and reactive to light.? ENT: TM normal bilaterally. Pharynx normal.?? Neck: Normal inspection.? Neck supple.??No cervical adenopathy CVS: Heart sounds normal. Normal heart rate and rhythm.? Pulses normal.?? Respiratory: No respiratory distress.? Lung sounds clear to auscultation bilaterally?? Abdomen: Soft and non-tender. Normoactive bowel sounds. Skin: Skin warm and dry.? Normal skin color.? ? Extremities: No lower extremity edema.? Neuro: Moves all extremities spontaneously. Sensation intact bilaterally. No motor deficits. Ambulates with normal steady gait. Medical Decision Making Medical Decision Making MDM Narrative: Patient is a 28-year-old female who is presenting for evaluation of upper respiratory symptoms. At this time history and physical exam not consistent with ACS/PE. CXR was obtained it is without evidence of pneumonia. Well-appearing, nontoxic, afebrile, no tachycardia or tachypnea/hypoxia. Speaking clear full sentences, ambulatory with steady gait. Symptoms at this time this concerning bronchitis, however given duration will trial course of antibiotics azithromycin in addition to Mucinex and Hycodan to be used at night. Discussed conservative treatment including rest, hydration, Tylenol/ibuprofen as needed for fever and body aches, saline nasal spray, humidifier, [id number] cold medication. Advised to follow-up with primary care provider as needed, discussed reasons to return back to the emergency department. All questions were answered. Patient discharged home in stable condition. Differential Diagnosis Differential Diagnoses: The differential diagnosis associated with the presentation includes ( See narrative above) Admission/Observation Consideration of admission/observation: Escalation of care including admission/observation considered ( see narrative above) Lab Data MDM Lab Attestation statement: I reviewed the patient's lab results. ( see n arrative above) Independent Interpretation I performed an independent interpretation of an: Plain X-Ray (No consolidation or infiltrate) Radiology Impression Discussion of test interpretation with radiology: I have reviewed the radiologist's reading. External Record Review External record reviewed: Outpatient record Prescription Management I considered prescription management with: Pain Medication ( a cetaminophen/ibuprofen) and Antibiotic Discharge Plan Discharge Clinical Impression: Bronchitis Patient Disposition: Home, Self-Care Instructions: Acute Bronchitis (ED) Additional Instructions: X-ray does not show evidence of pneumonia. Consider using a humidifier. Take medications as prescribed including azithromycin, Mucinex, and Hycodan for cough at night Follow-up with your primary care doctor Prescriptions: New azithromycin 250 mg tablet See Rx Instructions .ROUTE .COMPLEX Qty: 6 0RF Rx Instructions: For 250 mg dose pack: take 500 mg today (day 1), then 250 mg for 4 days (days 2-5) guaifenesin [Mucinex] 1,200 mg tablet extended release 12hr 1,200 mg PO BID Qty: 20 0RF hydrocodone-homatropine [Hycodan] 5-1.5 mg/5 mL (5 mL) syrup 5 ml PO Q6H PRN (Reason: cough) Qty: 200 0RF Rx Instructions: Partial Fill upon patient request. No Action doxycycline monohydrate 100 mg capsule 100 mg PO BID 7 Days Qty: 14 0RF metronidazole [Flagyl] 500 mg tablet 500 mg PO BID 7 Days Qty: 14 0RF amoxicillin 500 mg tablet 500 mg PO BID Qty: 14 0RF ibuprofen 600 mg tablet 600 mg PO Q8H PRN (Reason: fever or pain) Qty: 10 0RF levofloxacin 500 mg tablet 500 mg PO DAILY 5 Days Qty: 5 0RF phenazopyridine [Pyridium] 200 mg tablet 200 mg PO TID 2 Days Qty: 5 0RF ibuprofen 600 mg tablet 600 mg PO Q6-8H PRN (Reason: pain) Qty: 20 0RF azithromycin [Zithromax Z-Nic] 250 mg tablet See Rx Instructions .ROUTE .COMPLEX Qty: 6 0RF Rx Instructions: take 500 mg today (day 1), then 250 mg for 4 days (days 2-5) cetirizine [Allergy Relief (cetirizine)] 10 mg tablet 10 mg PO DAILY Qty: 30 0RF hydrocodone-homatropine [Hycodan] 5-1.5 mg/5 mL (5 mL) syrup 5 ml PO Q6H PRN (Reason: cough) Qty: 60 0RF Rx Instructions: Partial Fill upon patient request. Referrals: Physician,None [Primary Care Provider] - Interventions: ED Discharge Assessment Last Done: 09/29/23 15:10 Print Language: French
[2023-09-29 14:13] VITALS: BP 119/67; PULSE 83; RESP 16; TEMP 36; O2SAT 95; BMI 47.7
[2023-09-29 15:10] VITALS: BP 119/67; PULSE 83; RESP 16; TEMP 36; O2SAT 95
== END 2023-09-29 15:11 | disposition home or self-care (01) ==
PROVIDERS: Emergency Provider Student in an Organized Health Care Education/Training Program
DX: J40 Bronchitis, not specified as acute or chronic (principal); J02.9 Acute pharyngitis, unspecified; Z79.899 Other long term (current) drug therapy
CPT/HCPCS: 71046; 99282; 99283

== ENCOUNTER 2024-05-22 05:08 | Emergency (ER) | payer OTHER, SELFPAY ==
--- NOTE | ~2024-05-22 | XR_ITS ---
CLINICAL HISTORY: coughing 1 view chest x-ray Comparison: 09/20/2021 Findings: There is a new focal new right upper lobe pulmonary opacity most likely focal infiltrate, consolidation secondary to pneumonia. No visualized pleural effusion. Heart size is normal. No acute fracture. IMPRESSION: Likely right upper lobe pneumonia, new focal opacity like consolidation follow-up until clear recommended, pulmonary nodule can not be excluded This document has been electronically signed by: Tulio Dias MD on 05/22/2024 06:02:08
[2024-05-22 05:25] VITALS: BP 115/64; PULSE 91; RESP 20; TEMP 37.1; O2SAT 98; BMI 49.0
--- NOTE | 2024-05-22 05:38 | ED_ITS ---
HPI - General Adult General Chief complaint: General Medical Stated complaint: resp symptoms Time Seen by Provider: 05/22/24 05:33 Source: patient Mode of arrival: ambulatory Limitations: no limitations History of Present Illness ED Provider: Dr. Cathy Seo HPI narrative: Patient comes to the emergency room complaining of sore throat, cough, bilateral ear pain. Patient states that she has solid bit of blood in the sputum. Patient denies fever or chills. Related Data Previous Rx's ?Medication ?Instructions ?Recorded doxycycline monohydrate 100 mg 100 mg PO BID 7 days #14 caps 01/14/20 capsule metronidazole 500 mg tablet 500 mg PO BID bacterial vaginosis 01/16/20 (Flagyl) 7 days #14 tabs amoxicillin 500 mg tablet 500 mg PO BID #14 tabs 09/22/20 ibuprofen 600 mg tablet 600 mg PO Q8H PRN fever or pain 09/22/20 #10 tabs azithromycin 250 mg tablet See Rx Instructions PO .COMPLEX #6 09/20/21 (Zithromax Z-Nic) tabs cetirizine 10 mg tablet (Allergy 10 mg PO DAILY #30 tabs 09/20/21 Relief (cetirizine)) hydrocodone-homatropine 5 mg-1.5 5 ml PO Q6H PRN cough #60 mL 09/20/21 mg/5 mL (5 mL) oral syrup (Hycodan) ibuprofen 600 mg tablet 600 mg PO Q6-8H PRN pain #20 tabs 12/07/21 levofloxacin 500 mg tablet 500 mg PO DAILY 5 days #5 tabs 12/07/21 phenazopyridine 200 mg tablet 200 mg PO TID 2 days #5 tabs 12/07/21 (Pyridium) azithromycin 250 mg tablet See Rx Instructions PO .COMPLEX #6 09/29/23 tabs guaifenesin 1,200 mg tablet, 1,200 mg PO BID #20 tabs 09/29/23 extended release 12 hr (Mucinex) hydrocodone-homatropine 5 mg-1.5 5 ml PO Q6H PRN cough #200 mL 09/29/23 mg/5 mL (5 mL) oral syrup (Hycodan) amoxicillin 500 mg-potassium 1 tab PO TID 10 days #30 tabs 05/22/24 clavulanate 125 mg tablet (Augmentin) ibuprofen 600 mg tablet 600 mg PO Q8H PRN fever or pain 05/22/24 #20 tabs Allergies Allergy/AdvReac Type Severity Reaction Status Date / Time No Known Allergies Allergy Verified 05/22/24 05:27 [No Known Allergies*] Review of Systems 2 Review of Systems: Constitutional : No Weight loss, No Fever, No Chills, No Night Sweats, No Fatigue, No Malaise ENT/Mouth : No Hearing loss, complaining of bilateral ear fullness, complaining of Nasal Congestion, No Sinus Pain, No Hoarseness, complaining of sore throat, No Rhinorrhea, No Swallowing Difficulty Eyes: No Eye Pain, No Swelling, No Redness, No Foreign Body, No Discharge, No Vision Changes Cardiovascular : Complaining of chest pain only with coughing, no chest pain at rest. Denies palpitations Edema, No Palpitations Respiratory : Complaining of coughing, small specks of blood in the sputum. Gastrointestinal : No Nausea, No Vomiting, No Diarrhea, No Constipation, No abdominal Pain, No Hematochezia, No Melena Genitourinary : no irregular bleeding, No Dysuria, No Urinary Frequency, No Hematuria, No Urinary Incontinence, No Urgency, No Flank Pain, No Urinary Flow Changes, No Hesitancy Musculoskeletal : No joint pain, No Myalgias, No Joint Swelling Skin : No Skin Lesions, No rash Neuro : No Weakness, No Numbness, No Paresthesias, No Loss of Consciousness, No Dizziness, No Headache Psych : No Anxiety/Panic, No Depression, No SI/HI/AH/VH, No Social Issues, Heme/Lymph: No Bruising, No Bleeding,No Lymphadenopathy Endocrine : No Polyuria, No Polydipsia, No Temperature Intolerance [facility] Past Medical History Medical History No known health problems Social History Social History (System 12/10/21 @ 10:12 by Janey Lance) Alcohol intake: current Smoked in Last 30 Days: No Use of substances other than those prescribed or required for medical reasons: Yes Substance Use Type: Marijuana Substance Use Frequency: Occasionally Advance Directives: No Do you have a plan to hurt others: No Plan Patient : No Physical Exam ED Vital Signs: Vital Signs - 24 hr 05/22/24 05:25 Temperature 98.8 F Pulse Rate 91 Respiratory Rate 20 Blood Pressure 115/64 Pulse Oximetry 98 Oxygen Delivery Method Room Air BMI result Body Mass Index 49.0 Const Other: Appearance: Alert. Oriented X3. No acute distress. Eyes: Pupils equal, round and reactive to light. ENT: Erythematous oropharynx, no exudates or exudates,. No erythema, no bulging tympanic membranes, bilateral sinus pressure to palpation over frontal sinuses and maxillary sinuses bilaterally Neck: Normal inspection. Neck supple. No lymph nodes noted. No crepitus CVS: Normal heart rate and rhythm. Pulses normal. Normal S1 and S2 Respiratory: No respiratory distress. Breath sounds normal. No Wheezing. No rales Abdomen: Soft and nontender. No rigidity. No distention. Skin: Skin warm and dry. Normal skin color. Normal skin turgor. Extremities: No lower extremity edema. No Lacerations. No Rash Neuro: Oriented X 3. No motor deficit. No sensory deficit. Moving all extremities. No slurred speech. CN 2 through 12 grossly intact Psych: calm, cooperative, normal affect Course Course Course Narrative: Patient's labs and imaging pending Medications Administered Discontinued Medications Generic Name Dose Route Start Last Admin Trade Name Freq PRN Reason Stop Dose Admin Dexamethasone Sodium Phosphate 4 mg 05/22/24 05:37 05/22/24 05:55 Dexamethasone Sod Phosphate 4 Mg/Ml Vial IVPUSH 05/22/24 05:38 4 mg ONCE ONE Administration Lidocaine HCl 15 ml 05/22/24 05:37 05/22/24 05:56 Lidocaine Hcl Viscous 2 % 15 Ml Solution MUCOUS MEM 05/22/24 05:38 15 ml ONCE ONE Administration Medical Decision Making Medical Decision Making [facility] Narrative: My interpretation of hematology, white blood cell count 10.9. Serology positive for streptococcal pharyngitis Chest x-ray shows possible new focal opacity in the right upper lobe Patient was given the 1st dose of Augmentin in the emergency room Differential Diagnosis Differential Diagnoses: The differential diagnosis associated with the presentation includes (Strep pharyngitis, bronchitis, pneumonia) Lab Data [facility] Lab Attestation statement: I reviewed the patient's lab results. 05/22/24 05:29 05/22/24 05:29 Labs: Lab Results 05/22/24 Range/Units 05:29 WBC 10.9 H (4.8-10.8) X10*3/uL RBC 4.36 (4.20-5.50) X10*6/uL Hgb 12.9 (12.0-16.0) g/dl Hct 38.2 (37.0-47.0) % MCV 87.6 (80.0-98.0) fL MCH 29.6 (27.0-33.0) pg MCHC 33.8 (31.0-35.0) g/dl RDW 12.7 (11.0-16.0) % Plt Count 334 (160-400) X10*3/uL MPV 10.5 (9.4-12.3) fL Immature Gran % (Auto) 0.4 (0.0-0.4) % Neut % (Auto) 73.7 H (45-73) % Lymph % (Auto) 18.4 L (20-40) % [place] % (Auto) 6.1 (2-11) % Eos % (Auto) 0.8 (0-4) % Baso % (Auto) 0.6 (0-2) % Lymph # (Auto) 2.0 (1.2-4.9) X10*3/uL [place] # (Auto) 0.7 (0.1-1.2) X10*3/uL Eos # (Auto) 0.1 (0.0-0.4) X10*3/uL Baso # (Auto) 0.1 (0.0-0.2) X10*3/uL Abs Immat Gran (auto) 0.04 H (0.00-0.03) X10*3/uL Absolute Neuts (auto) 8.0 (2.0-8.3) x10*3/uL Absolute Nucleated RBC 0.000 (0.0-0.012) X10*3/uL Nucleated RBC % (auto) 0.0 (0.0-0.2) /100WBC S. pyogenes GrpA NIRALI Positive A (Negative) Independent Interpretation I performed an independent interpretation of an: Plain X-Ray Radiology Impression Discussion of test interpretation with radiology: I have reviewed the radiologist's reading. Radiologist Impression: There is a new focal new right upper lobe pulmonary opacity most likely focal infiltrate, consolidation secondary to pneumonia. No visualized pleural effusion. Heart size is normal. No acute fracture. IMPRESSION: Likely right upper lobe pneumonia, new focal opacity like consolidation follow-up until clear recommended, pulmonary nodule can not be excluded Discharge Plan Discharge Clinical Impression: Acute streptococcal pharyngitis, Pneumonia Patient Disposition: Home, Self-Care Instructions: Strep Throat (ED), Community Acquired Pneumonia (ED) Additional Instructions: In approximately 7 days, please get a new toothbrush to avoid reinfectedyourself. Please follow-up with your primary care physician tomorrow. If you have any worsening or new symptoms, please return to the emergency room or call 911 Prescriptions: New amoxicillin-pot clavulanate [Augmentin] 500-125 mg tablet 1 tab PO TID 10 Days Qty: 30 0RF ibuprofen 600 mg tablet 600 mg PO Q8H PRN (Reason: fever or pain) Qty: 20 0RF No Action doxycycline monohydrate 100 mg capsule 100 mg PO BID 7 Days Qty: 14 0RF metronidazole [Flagyl] 500 mg tablet 500 mg PO BID 7 Days Qty: 14 0RF amoxicillin 500 mg tablet 500 mg PO BID Qty: 14 0RF ibuprofen 600 mg tablet 600 mg PO Q8H PRN (Reason: fever or pain) Qty: 10 0RF levofloxacin 500 mg tablet 500 mg PO DAILY 5 Days Qty: 5 0RF phenazopyridine [Pyridium] 200 mg tablet 200 mg PO TID 2 Days Qty: 5 0RF ibuprofen 600 mg tablet 600 mg PO Q6-8H PRN (Reason: pain) Qty: 20 0RF azithromycin [Zithromax Z-Nic] 250 mg tablet See Rx Instructions .ROUTE .COMPLEX Qty: 6 0RF Rx Instructions: take 500 mg today (day 1), then 250 mg for 4 days (days 2-5) cetirizine [Allergy Relief (cetirizine)] 10 mg tablet 10 mg PO DAILY Qty: 30 0RF hydrocodone-homatropine [Hycodan] 5-1.5 mg/5 mL (5 mL) syrup 5 ml PO Q6H PRN (Reason: cough) Qty: 60 0RF Rx Instructions: Partial Fill upon patient request. azithromycin 250 mg tablet See Rx Instructions .ROUTE .COMPLEX Qty: 6 0RF Rx Instructions: For 250 mg dose pack: take 500 mg today (day 1), then 250 mg for 4 days (days 2-5) guaifenesin [Mucinex] 1,200 mg tablet extended release 12hr 1,200 mg PO BID Qty: 20 0RF hydrocodone-homatropine [Hycodan] 5-1.5 mg/5 mL (5 mL) syrup 5 ml PO Q6H PRN (Reason: cough) Qty: 200 0RF Rx Instructions: Partial Fill upon patient request. Stand Alone Forms: Work/School Release Print Language: Welsh
[2024-05-22 05:47] LABS: MANUAL DIFF FLAG NO
[2024-05-22 05:52] LABS: Basophils Absolute Auto 0.1 X10*3/uL (0.0-0.2); Basophils Percent Auto 0.6 % (0-2); Eosinophils Absolute Auto 0.1 X10*3/uL (0.0-0.4); Eosinophils Percent Auto 0.8 % (0-4); Hematocrit 38.2 % (37.0-47.0); Hemoglobin 12.9 g/dl (12.0-16.0); Imm Gran Abs Auto 0.04 X10*3/uL (0.00-0.03); Imm Gran Pct Auto 0.4 % (0.0-0.4); Lymphocytes Percent Auto 18.4 % (20-40); Mean Corpuscular HGB Conc 33.8 g/dl (31.0-35.0); Mean Corpuscular Hemoglobin 29.6 pg (27.0-33.0); Mean Corpuscular Volume 87.6 fL (80.0-98.0); Mean Platelet Volume 10.5 fL (9.4-12.3); Monocytes Absolute Auto 0.7 X10*3/uL (0.1-1.2); Monocytes Percent Auto 6.1 % (2-11); Neutrophils Percent Auto 73.7 % (45-73); Platelet Count 334 X10*3/uL (160-400); Red Blood Count 4.36 X10*6/uL (4.20-5.50); Red Cell Distribution Width 12.7 % (11.0-16.0); White Blood Count 10.9 X10*3/uL (4.8-10.8)
[2024-05-22] MEDS: dexAMETHasone sod phosphate 4 MG/ML VIAL IVPUSH (05:55)
[2024-05-22 05:56] LABS: IDNOW Serial# 58CA691E; Strep A Nucleic Acid Positive (Negative)
[2024-05-22] MEDS: Lidocaine HCl Viscous 2 % 15 ML SOLUTION MUCOUS MEM (05:56)
[2024-05-22 06:09] LABS: Alanine Aminotransferase 20 U/L (0-31); Albumin Level 3.8 g/dL (3.5-5.0); Alkaline Phosphatase 79 U/L (39-117); Anion Gap 11 (12-20); Aspartate Amino Transferase 16 U/L (5-31); Bilirubin Total 0.6 mg/dL (0.0-1.0); Blood Urea Nitrogen 11 mg/dL (9-16); Calcium 8.8 mg/dL (8.4-10.2); Carbon Dioxide 23 mmol/L (22-29); Chloride 109 mmol/L (96-108); Creatinine Clr Calc Pharmacy 131.2; Estimated Glomerular Filt Rate > 60; Glucose Random 94 mg/dL (60-115); Potassium 3.7 mmol/L (3.3-5.1); Sodium 139 mmol/L (135-145)
[2024-05-22 06:28] LABS: Influenza A PCR NEGATIVE (Negative); Influenza B PCR NEGATIVE (Negative); Resp Syncy Virus RNA Qual PCR NEGATIVE (Negative); SARS COV2 PCR INHOUSE NEGATIVE (Negative)
[2024-05-22 06:37] VITALS: BP 114/67; PULSE 90; RESP 18; TEMP 36.9; O2SAT 100
[2024-05-22] MEDS: Amoxicillin/Potassium Clav 500 MG TABLET PO (06:38)
[2024-05-22 06:42] VITALS: BP 114/67; PULSE 90; RESP 18; TEMP 36.9; O2SAT 100
== END 2024-05-22 06:43 | disposition home or self-care (01) ==
PROVIDERS: Emergency Provider Emergency Medicine
DX: J02.0 Streptococcal pharyngitis (principal); J18.9 Pneumonia, unspecified organism; R05.9 Cough, unspecified; H92.03 Otalgia, bilateral; Z03.818 Encounter for observation for suspected exposure to other biological agents ruled out
CPT/HCPCS: 0241U; 71045; 80053; 85025; 87651; 99283; 99284; J1100

== ENCOUNTER → 2024-05-22 05:40 | Outpatient (BNV) | payer OTHER, SELFPAY | PROVIDERS: Emergency Provider Emergency Medicine; Visit Provider Radiology Diagnostic Radiology | DX: R05.9 Cough, unspecified (principal) | CPT/HCPCS: 71045 ==

== ENCOUNTER 2024-10-02 17:05 | Emergency (ER) | payer OTHER, SELFPAY ==
[2024-10-02 17:10] VITALS: BP 143/86; PULSE 82; RESP 18; TEMP 36.6; O2SAT 98; BMI 46.9
--- NOTE | 2024-10-02 17:10 | ED.ABDPAIN ---
HPI - Abdominal Pain General Chief Complaint: General Medical Stated Complaint: vaginal discomfort/lower abd pain Related Data Previous Rx's ?Medication ?Instructions ?Recorded doxycycline monohydrate 100 mg 100 mg PO BID 7 days #14 caps 01/14/20 capsule metronidazole 500 mg tablet 500 mg PO BID bacterial vaginosis 01/16/20 (Flagyl) 7 days #14 tabs amoxicillin 500 mg tablet 500 mg PO BID #14 tabs 09/22/20 ibuprofen 600 mg tablet 600 mg PO Q8H PRN fever or pain 09/22/20 #10 tabs azithromycin 250 mg tablet See Rx Instructions PO .COMPLEX #6 09/20/21 (Zithromax Z-Nic) tabs cetirizine 10 mg tablet (Allergy 10 mg PO DAILY #30 tabs 09/20/21 Relief (cetirizine)) hydrocodone-homatropine 5 mg-1.5 5 ml PO Q6H PRN cough #60 mL 09/20/21 mg/5 mL (5 mL) oral solution (Hycodan) ibuprofen 600 mg tablet 600 mg PO Q6-8H PRN pain #20 tabs 12/07/21 levofloxacin 500 mg tablet 500 mg PO DAILY 5 days #5 tabs 12/07/21 phenazopyridine 200 mg tablet 200 mg PO TID 2 days #5 tabs 12/07/21 (Pyridium) azithromycin 250 mg tablet See Rx Instructions PO .COMPLEX #6 09/29/23 tabs guaifenesin 1,200 mg tablet, 1,200 mg PO BID #20 tabs 09/29/23 extended release 12 hr (Mucinex) hydrocodone-homatropine 5 mg-1.5 5 ml PO Q6H PRN cough #200 mL 09/29/23 mg/5 mL (5 mL) oral solution (Hycodan) amoxicillin 500 mg-potassium 1 tab PO TID 10 days #30 tabs 05/22/24 clavulanate 125 mg tablet (Augmentin) ibuprofen 600 mg tablet 600 mg PO Q8H PRN fever or pain 05/22/24 #20 tabs Allergies Allergy/AdvReac Type Severity Reaction Status Date / Time No Known Allergies (No Known Allergy Verified 10/02/24 17:12 Allergies*) [facility] Past Medical History Medical History No known health problems Social History Social History (System 12/10/21 @ 10:12 by Janey Lance) Alcohol intake: current Substance Use Type: Marijuana Advance Directives: No Advance Directives Information Provided: No Do you have a plan to hurt others: No Plan Physical Exam ED Vital Signs: Vital Signs - 24 hr 10/02/24 17:10 Temperature 98 F Pulse Rate 82 Respiratory Rate 18 Blood Pressure 143/86 H Pulse Oximetry 98 Oxygen Delivery Method Room Air BMI result Body Mass Index 46.9 Course Course Course Narrative: This is a Rapid Medical Examination (RME) performed by Soledad Jeronimo PA-C in triage. Full HPI, ROS, assessment and treatment plan per primary provider in the Main ED. Hx: 29 yo F here for eval of lower abdominal pain/cramping, increased vaginal discharge, tearing and swelling of my vagina x2 weeks. originally seen at [facility] for same 2 weeks ago, tested positive for BV, has completed tx for this without improvement. currently sexually active. LMP 2 wks ago. Plan: labs, UA, ctng Reevaluation(s) Reevaluation #1: Patient left the emergency department before myself or any of the other clinicians could review or explain physical exam findings, test results, need or lack there of for additional testing, treatment options, or a treatment plan. Medical Decision Making Lab Data 10/02/24 17:46 10/02/24 17:46 Labs: Lab Results 10/02/24 Range/Units 17:46 WBC 10.7 (4.8-10.8) X10*3/uL RBC 4.42 (4.20-5.50) X10*6/uL Hgb 13.2 (12.0-16.0) g/dl Hct 38.8 (37.0-47.0) % MCV 87.8 (80.0-98.0) fL MCH 29.9 (27.0-33.0) pg MCHC 34.0 (31.0-35.0) g/dl RDW 13.0 (11.0-16.0) % Plt Count 336 (160-400) X10*3/uL MPV 10.3 (9.4-12.3) fL Immature Gran % (Auto) 0.2 (0.0-0.4) % Neut % (Auto) 64.2 (45-73) % Lymph % (Auto) 26.5 (20-40) % [place] % (Auto) 7.3 (2-11) % Eos % (Auto) 1.1 (0-4) % Baso % (Auto) 0.7 (0-2) % Lymph # (Auto) 2.8 (1.2-4.9) X10*3/uL [place] # (Auto) 0.8 (0.1-1.2) X10*3/uL Eos # (Auto) 0.1 (0.0-0.4) X10*3/uL Baso # (Auto) 0.1 (0.0-0.2) X10*3/uL Abs Immat Gran (auto) 0.02 (0.00-0.03) X10*3/uL Absolute Neuts (auto) 6.9 (2.0-8.3) x10*3/uL Absolute Nucleated RBC 0.000 (0.0-0.012) X10*3/uL Nucleated RBC % (auto) 0.0 (0.0-0.2) /100WBC Sodium 139 (135-145) mmol/L Potassium 3.9 (3.3-5.1) mmol/L Chloride 106 (96-108) mmol/L Carbon Dioxide 27 (22-29) mmol/L Anion Gap 10 L (12-20) BUN 15 (9-16) mg/dL Creatinine 0.80 (0.5-1.4) mg/dL Estim Creat Clear Calc 118.1 Estimated GFR > 60 Random Glucose 92 (60-115) mg/dL Calcium 8.9 (8.4-10.2) mg/dL Total Bilirubin 0.2 (0.0-1.0) mg/dL AST 23 (5-31) U/L ALT 32 H (0-31) U/L Alkaline Phosphatase 90 (39-117) U/L Total Protein 7.8 (6.5-8.0) g/dL Albumin 4.4 (3.5-5.0) g/dL Discharge Plan Discharge Clinical Impression: Vaginal discharge Patient Disposition: Left W/O Completing Treatment Prescriptions: No Action doxycycline monohydrate 100 mg capsule 100 mg PO BID 7 Days Qty: 14 0RF metronidazole [Flagyl] 500 mg tablet 500 mg PO BID 7 Days Qty: 14 0RF amoxicillin 500 mg tablet 500 mg PO BID Qty: 14 0RF ibuprofen 600 mg tablet 600 mg PO Q8H PRN (Reason: fever or pain) Qty: 10 0RF levofloxacin 500 mg tablet 500 mg PO DAILY 5 Days Qty: 5 0RF phenazopyridine [Pyridium] 200 mg tablet 200 mg PO TID 2 Days Qty: 5 0RF ibuprofen 600 mg tablet 600 mg PO Q6-8H PRN (Reason: pain) Qty: 20 0RF azithromycin [Zithromax Z-Nic] 250 mg tablet See Rx Instructions .ROUTE .COMPLEX Qty: 6 0RF Rx Instructions: take 500 mg today (day 1), then 250 mg for 4 days (days 2-5) cetirizine [Allergy Relief (cetirizine)] 10 mg tablet 10 mg PO DAILY Qty: 30 0RF hydrocodone-homatropine [Hycodan] 5-1.5 mg/5 mL (5 mL) syrup 5 ml PO Q6H PRN (Reason: cough) Qty: 60 0RF Rx Instructions: Partial Fill upon patient request. azithromycin 250 mg tablet See Rx Instructions .ROUTE .COMPLEX Qty: 6 0RF Rx Instructions: For 250 mg dose pack: take 500 mg today (day 1), then 250 mg for 4 days (days 2-5) guaifenesin [Mucinex] 1,200 mg tablet extended release 12hr 1,200 mg PO BID Qty: 20 0RF hydrocodone-homatropine [Hycodan] 5-1.5 mg/5 mL (5 mL) syrup 5 ml PO Q6H PRN (Reason: cough) Qty: 200 0RF Rx Instructions: Partial Fill upon patient request. amoxicillin-pot clavulanate [Augmentin] 500-125 mg tablet 1 tab PO TID 10 Days Qty: 30 0RF ibuprofen 600 mg tablet 600 mg PO Q8H PRN (Reason: fever or pain) Qty: 20 0RF
[2024-10-02 17:51] LABS: MANUAL DIFF FLAG NO
[2024-10-02 17:55] LABS: Hematocrit 38.8 % (37.0-47.0); Hemoglobin 13.2 g/dl (12.0-16.0); Imm Gran Abs Auto 0.02 X10*3/uL (0.00-0.03); Imm Gran Pct Auto 0.2 % (0.0-0.4); Lymphocytes Absolute Auto 2.8 X10*3/uL (1.2-4.9); Mean Corpuscular HGB Conc 34.0 g/dl (31.0-35.0); Mean Corpuscular Hemoglobin 29.9 pg (27.0-33.0); Mean Corpuscular Volume 87.8 fL (80.0-98.0); NRBC Abs Auto 0.000 X10*3/uL (0.0-0.012); NRBC Pct Auto 0.0 /100WBC (0.0-0.2); Platelet Count 336 X10*3/uL (160-400); Red Blood Count 4.42 X10*6/uL (4.20-5.50); White Blood Count 10.7 X10*3/uL (4.8-10.8)
[2024-10-02 18:10] LABS: Alanine Aminotransferase 32 U/L (0-31); Albumin Level 4.4 g/dL (3.5-5.0); Alkaline Phosphatase 90 U/L (39-117); Anion Gap 10 (12-20); Aspartate Amino Transferase 23 U/L (5-31); Blood Urea Nitrogen 15 mg/dL (9-16); Calcium 8.9 mg/dL (8.4-10.2); Carbon Dioxide 27 mmol/L (22-29); Chloride 106 mmol/L (96-108); Creatinine Clr Calc Pharmacy 118.1; Estimated Glomerular Filt Rate > 60; Potassium 3.9 mmol/L (3.3-5.1); Sodium 139 mmol/L (135-145); Total Protein 7.8 g/dL (6.5-8.0)
[2024-10-03 12:22] LABS: CT PCR Urine NOT DETECTED (Not Detect.); NG PCR Urine NOT DETECTED (Not Detect.)
== END 2024-10-02 23:35 | disposition left against medical advice (07) ==
PROVIDERS: Physician Assistant Medical; Emergency Provider Emergency Medicine
DX: N89.8 Other specified noninflammatory disorders of vagina (principal); R10.2 Pelvic and perineal pain; Z79.899 Other long term (current) drug therapy
CPT/HCPCS: 36415; 80053; 85025; 87491; 87591; 99282; 99283

== ENCOUNTER 2024-10-05 06:46 | Emergency (ER) | payer OTHER, SELFPAY ==
[2024-10-05 06:51] VITALS: BP 120/60; PULSE 88; RESP 18; TEMP 37.1; O2SAT 98; BMI 51.1
[2024-10-05 07:21] LABS: MANUAL DIFF FLAG NO
[2024-10-05 07:22] LABS: Hematocrit 38.0 % (37.0-47.0); Hemoglobin 13.1 g/dl (12.0-16.0); Imm Gran Abs Auto 0.02 X10*3/uL (0.00-0.03); Imm Gran Pct Auto 0.3 % (0.0-0.4); Lymphocytes Absolute Auto 2.6 X10*3/uL (1.2-4.9); Mean Corpuscular HGB Conc 34.5 g/dl (31.0-35.0); Mean Corpuscular Hemoglobin 30.3 pg (27.0-33.0); Mean Corpuscular Volume 87.8 fL (80.0-98.0); NRBC Abs Auto 0.000 X10*3/uL (0.0-0.012); NRBC Pct Auto 0.0 /100WBC (0.0-0.2); Platelet Count 325 X10*3/uL (160-400); Red Blood Count 4.33 X10*6/uL (4.20-5.50); White Blood Count 6.8 X10*3/uL (4.8-10.8)
[2024-10-05 07:23] LABS: Appearance Urine Clear; Glucose Urine UA Negative (Negative); PH 7.0 (5.0-9.0); Specific Gravity - Urine 1.020 (1.005-1.025); UMIC TRIGGER UACC YES
[2024-10-05 07:38] LABS: UACC Culture Trigger YES
[2024-10-05 07:49] LABS: Alanine Aminotransferase 27 U/L (0-31); Albumin Level 4.2 g/dL (3.5-5.0); Alkaline Phosphatase 92 U/L (39-117); Anion Gap 11 (12-20); Aspartate Amino Transferase 18 U/L (5-31); Blood Urea Nitrogen 20 mg/dL (9-16); Calcium 8.8 mg/dL (8.4-10.2); Carbon Dioxide 24 mmol/L (22-29); Chloride 109 mmol/L (96-108); Creatinine Clr Calc Pharmacy 140.4; Estimated Glomerular Filt Rate > 60; Potassium 3.7 mmol/L (3.3-5.1); Sodium 140 mmol/L (135-145); Total Protein 7.4 g/dL (6.5-8.0)
--- NOTE | 2024-10-05 08:56 | ED_ITS ---
HPI - Female Genitourinary General Chief complaint: Urogenital-Female Stated complaint: Uro gen female. light spotting Time Seen by Provider: 10/05/24 08:52 Source: patient, RN notes reviewed and old records reviewed Mode of arrival: ambulatory Limitations: no limitations History of Present Illness ED Provider: Christopher RIVERS Narrative: Patient is a 29-year-old female presenting to the emergency department with complaint of vaginal discomfort, dysuria and reported lesions. States that symptoms began around 1 month ago with abnormal vaginal discharge and vaginal irritation. She was seen at [facility] 2 weeks ago and treated for BV, denies any improvement in symptoms. States since that time her discharge has lessened but she is still having discomfort. Occasional spotting. Last menstrual period 2 weeks ago. Denies suprapubic, flank or back pain. Denies fevers. States she has been using Azo the past 2 days. MD elicited complaint: vaginal discharge Related Data Previous Rx's ?Medication ?Instructions ?Recorded doxycycline monohydrate 100 mg 100 mg PO BID 7 days #1 4 caps 01/14/20 capsule metronidazole 500 mg tablet 500 mg PO BID bacterial va ginosis 01/16/20 (Flagyl) 7 days #14 tabs amoxicillin 500 mg tablet 500 mg PO BID #14 tabs 09/22 ibuprofen 600 mg tablet 600 mg PO Q8H PRN fever or p ain 09/22/20 #10 tabs azithromycin 250 mg tablet See Rx Instructions PO .COM PLEX #6 09/20/21 (Zithromax Z-Nic) tabs cetirizine 10 mg tablet (Allergy 10 mg PO DAILY #30 ta bs 09/20/21 Relief (cetirizine)) hydrocodone-homatropine 5 mg-1.5 5 ml PO Q6H PRN cough #60 mL 09/20/21 mg/5 mL (5 mL) oral solution (Hycodan) ibuprofen 600 mg tablet 600 mg PO Q6-8H PRN pain #20 tabs 12/07/21 levofloxacin 500 mg tablet 500 mg PO DAILY 5 days #5 t abs 12/07/21 phenazopyridine 200 mg tablet 200 mg PO TID 2 days #5 tabs 12/07/21 (Pyridium) azithromycin 250 mg tablet See Rx Instructions PO .COM PLEX #6 09/29/23 tabs guaifenesin 1,200 mg tablet, 1,200 mg PO BID #20 tabs 09/29/23 extended release 12 hr (Mucinex) hydrocodone-homatropine 5 mg-1.5 5 ml PO Q6H PRN cough #200 mL 09/29/23 mg/5 mL (5 mL) oral solution (Hycodan) amoxicillin 500 mg-potassium 1 tab PO TID 10 days #30 tabs 05/22/24 clavulanate 125 mg tablet (Augmentin) ibuprofen 600 mg tablet 600 mg PO Q8H PRN fever or p ain 05/22/24 #20 tabs cefuroxime axetil 250 mg tablet 250 mg PO BID #14 tabs 10/05/24 Allergies Allergy/AdvReac Type Severity Reaction Status Date / Time No Known Allergies (No Known Allergy Verified 10/05/24 06:55 Allergies*) Review of Systems 2 Review of Systems: As per HPI Yes all other systems are reviewed and are negative Constitutional: Constitutional: Reports as per HPI [facility] Past Medical History Medical History No known health problems Social History Social History (System 12/10/21 @ 10:12 by Janey Lance) Alcohol intake: current Substance Use Type: Marijuana Advance Directives: No Advance Directives Information Provided: Yes Do you have a plan to hurt others: No Plan Physical Exam 2 Vital Signs: Vital Signs: Last Vital Signs Temp 98.7 F 10/05/24 06:51 Pulse 88 10/05/24 06:51 Resp 18 10/05/24 06:51 BP 120/60 10/05/24 06:51 Pulse Ox 98 10/05/24 06:51 O2 Del Method Room Air 10/05/24 06:51 BMI result Body Mass Index 51.1 Vital signs have been reviewed and appear to be correct. Blood pressure normal. Heart rate normal. Respiratory rate normal. Temperature normal. Oxygen saturation normal. Const: General: cooperative, healthy appearing and no acute distress O rientation/consciousness: oriented to person, oriented to place, oriented to time and patient oriented x3 Limitations: no limitations HEENT: Head: Yes normocephalic and Yes atraumatic Ears: external ears normal General nose exam: Normal external nose present Face and sinus: Yes face symmetric Mouth: oropharynx normal and moist mucous membranes Throat: Yes uvula midline Eyes: Pupils: Equal, round and reactive pupils present Neck: Neck: Yes normal visual inspection and Yes supple Resp: Effort & Inspection: normal respiratory effort and able to speak in complete sentences Auscultation: clear to auscultation bilaterally Cardio: Rate: regular rate Rhythm: regular rhythm Heart sounds: S1 normal heart sound present and S2 normal heart sound present GI: Palpation (GI): Soft to palpation and nontender Auscultation: n ormoactive bowel sounds : Other: Pelvic exam chaperoned by Keri Pinto RN General: Yes no CVA tenderness External Female Exam: other (3 areas of 1mm excoriation not consistent with HSV, likely due to shaving) Speculum Exam - Vagina: normal appearance of the vagina, normal palpation, not erythematous, lesion (3 areas of 1mm excoriation not consistent with HSV, likely due to shaving) and No vaginal bleeding Speculum Exam - Cervix: normal appearance of the cervix, Cervical os closed, Abnormal cervical discharge present yellow, no lesions and nontender Bimanual exam- vagina & uterus: normal palpation and No Cervical tenderness present OB/external & speculum: No vaginal bleeding Back/Spine/Pelvis: Back: no CVA tenderness Skin: General skin exam: elasticity normal and turgor normal Neuro: General: oriented to person, oriented to place, oriented to time, patient oriented x3, moves all extremities, no focal motor deficits and CN's II- XI intact bilaterally Cranial nerves: Yes Equal, round and reactive pupils present Cognition (Neuro): normal cognition Extrem: General: Yes full ROM, Yes no pedal edema and Yes no calf tenderness Psych: Mental Status: mental status grossly normal Affect: normal affect Thought process: Normal thought process present Medical Decision Making Medical Decision Making MDM Narrative: Patient is a 29-year-old female presenting to the emergency department with complaint of vaginal discomfort, dysuria and reported lesions. On exam patient is awake, A+Ox3, VS WNL, afebrile, normal neurological exam without focal deficits, physical exam findings as above. Given reported symptoms and physical exam findings, initial differential includes but is not limited to UTI, STI, vulvovaginal candidiasis, BV. Labs unremarkable, HCG negative. UA notable for 1+ leukocytes and positive nitrites. Given report of dysuria will treat for UTI. CT NG and BV swabs sent to lab, patient will be notified of any positive results. Return precautions discussed. Patient verbalized understanding of and agreement with plan. Differential Diagnosis Differential Diagnoses: The differential diagnosis associated with the presentation includes as per [facility] Admission/Observation Consideration of admission/observation: Escalation of care including admission/observation considered Patient would have been admitted to the hospital had their clinical presentation warranted hospital admission. Lab Data [facility] Lab Attestation statement: I reviewed the patient's lab results. as per [facility] 10/05/24 07:15 10/05/24 07:15 Labs: Lab Results 10/05/24 Range/Units 07:15 WBC 6.8 (4.8-10.8) X10*3/uL RBC 4.33 (4.20-5.50) X10*6/uL Hgb 13.1 (12.0-16.0) g/dl Hct 38.0 (37.0-47.0) % MCV 87.8 (80.0-98.0) fL MCH 30.3 (27.0-33.0) pg MCHC 34.5 (31.0-35.0) g/dl RDW 13.0 (11.0-16.0) % Plt Count 325 (160-400) X10*3/uL MPV 10.4 (9.4-12.3) fL Immature Gran % (Auto) 0.3 (0.0-0.4) % Neut % (Auto) 51.4 (45-73) % Lymph % (Auto) 38.3 (20-40) % [place] % (Auto) 7.5 (2-11) % Eos % (Auto) 1.3 (0-4) % Baso % (Auto) 1.2 (0-2) % Lymph # (Auto) 2.6 (1.2-4.9) X10*3/uL [place] # (Auto) 0.5 (0.1-1.2) X10*3/uL Eos # (Auto) 0.1 (0.0-0.4) X10*3/uL Baso # (Auto) 0.1 (0.0-0.2) X10*3/uL Abs Immat Gran (auto) 0.02 (0.00-0.03) X10*3/uL Absolute Neuts (auto) 3.5 (2.0-8.3) x10*3/uL Absolute Nucleated RBC 0.000 (0.0-0.012) X10*3/uL Nucleated RBC % (auto) 0.0 (0.0-0.2) /100WBC Sodium 140 (135-145) mmol/L Potassium 3.7 (3.3-5.1) mmol/L Chloride 109 H (96-108) mmol/L Carbon Dioxide 24 (22-29) mmol/L Anion Gap 11 L (12-20) BUN 20 H (9-16) mg/dL Creatinine 0.71 (0.5-1.4) mg/dL Estim Creat Clear Calc 140.4 Estimated GFR > 60 Fasting Glucose 101 H (60-99) mg/dL Calcium 8.8 (8.4-10.2) mg/dL Total Bilirubin 0.2 (0.0-1.0) mg/dL AST 18 (5-31) U/L ALT 27 (0-31) U/L Alkaline Phosphatase 92 (39-117) U/L Total Protein 7.4 (6.5-8.0) g/dL Albumin 4.2 (3.5-5.0) g/dL Beta HCG, Quant < 2 mIU/mL Urine Color Dark Yellow Urine Appearance Clear Urine pH 7.0 (5.0-9.0) Ur Specific [place] 1.020 (1.005-1.025) Urine Protein Negative (Neg-Trace) mg/dL Urine Glucose (UA) Negative (Negative) mg/dL Urine Ketones Negative (Negative) mg/dL Urine Blood Negative (Negative) Urine Nitrite Positive H (Negative) Ur Leukocyte Esterase Small (1+) H (Negative) Urine RBC 0-2 (0-2) /HPF Urine WBC 0-5 (0-5) /HPF Ur Squamous Epith Cells 3-5 (0-2) /HPF Urine Bacteria None Seen (None Seen) Hyaline Casts 0-2 (0-2) /LPF External Record Review External record reviewed: Inpatient record, Office record and Outpatient record Prescription Management I considered prescription management with: Antibiotic Discharge Plan Discharge Clinical Impression: Urinary tract infection Patient Disposition: Home, Self-Care Instructions: Urinary Tract Infection in Women (DC) Additional Instructions: You have been evaluated in the emergency department today for your vaginal and urinary symptoms. Your evaluation, including urinalysis, suggests that some of your symptoms are due to urinary tract infection. Please take your prescribed antibiotics for the full course of medication as directed. The swabs from your vaginal exam are pending, and you will be contacted with any positive results. Please follow-up with your primary care provider within 2 days. Return to the emergency department if you experience fevers 100.4? F or greater, worsening or uncontrolled pain, vomiting, flank pain, or for any other concerning symptoms. Prescriptions: New cefuroxime axetil 250 mg tablet 250 mg PO BID Qty: 14 0RF No Action doxycycline monohydrate 100 mg capsule 100 mg PO BID 7 Days Qty: 14 0RF metronidazole [Flagyl] 500 mg tablet 500 mg PO BID 7 Days Qty: 14 0RF amoxicillin 500 mg tablet 500 mg PO BID Qty: 14 0RF ibuprofen 600 mg tablet 600 mg PO Q8H PRN (Reason: fever or pain) Qty: 10 0RF levofloxacin 500 mg tablet 500 mg PO DAILY 5 Days Qty: 5 0RF phenazopyridine [Pyridium] 200 mg tablet 200 mg PO TID 2 Days Qty: 5 0RF ibuprofen 600 mg tablet 600 mg PO Q6-8H PRN (Reason: pain) Qty: 20 0RF azithromycin [Zithromax Z-Nic] 250 mg tablet See Rx Instructions .ROUTE .COMPLEX Qty: 6 0RF Rx Instructions: take 500 mg today (day 1), then 250 mg for 4 days (days 2-5) cetirizine [Allergy Relief (cetirizine)] 10 mg tablet 10 mg PO DAILY Qty: 30 0RF hydrocodone-homatropine [Hycodan] 5-1.5 mg/5 mL (5 mL) syrup 5 ml PO Q6H PRN (Reason: cough) Qty: 60 0RF Rx Instructions: Partial Fill upon patient request. azithromycin 250 mg tablet See Rx Instructions .ROUTE .COMPLEX Qty: 6 0RF Rx Instructions: For 250 mg dose pack: take 500 mg today (day 1), then 250 mg for 4 days (days 2-5) guaifenesin [Mucinex] 1,200 mg tablet extended release 12hr 1,200 mg PO BID Qty: 20 0RF hydrocodone-homatropine [Hycodan] 5-1.5 mg/5 mL (5 mL) syrup 5 ml PO Q6H PRN (Reason: cough) Qty: 200 0RF Rx Instructions: Partial Fill upon patient request. amoxicillin-pot clavulanate [Augmentin] 500-125 mg tablet 1 tab PO TID 10 Days Qty: 30 0RF ibuprofen 600 mg tablet 600 mg PO Q8H PRN (Reason: fever or pain) Qty: 20 0RF Print Language: Polish
[2024-10-05 10:12] VITALS: BP 120/60; PULSE 88; RESP 18; TEMP 37.1; O2SAT 98
[2024-10-05 11:45] LABS: Bacterial Vaginosis PCR NEGATIVE (Negative); Candida Group PCR DETECTED (Not Detect); Candida glab krusei PCR NOT DETECTED (Not Detect); Trichomonas vaginalis PCR NOT DETECTED (Not Detect)
[2024-10-05 12:17] LABS: CT PCR NOT DETECTED (Not Detect.); NG PCR NOT DETECTED (Not Detect.)
== END 2024-10-05 10:13 | disposition home or self-care (01) ==
PROVIDERS: Registered Nurse Emergency; Emergency Provider Emergency Medicine Emergency Medical Services
DX: N39.0 Urinary tract infection, site not specified (principal); N76.0 Acute vaginitis; R10.2 Pelvic and perineal pain
CPT/HCPCS: 36415; 80053; 81001; 81515; 84702; 85025; 87086; 87255; 87491; 87591; 99282; 99283

== ENCOUNTER 2025-02-13 09:21 | Emergency (ER) | payer OTHER, SELFPAY ==
--- NOTE | ~2025-02-13 | XR_ITS ---
EXAMINATION: XR CHEST CLINICAL INFORMATION: cough COMPARISON: Previous chest x-ray April 2024 TECHNIQUE: 2 views of the chest were obtained. FINDINGS: The lungs are clear. No consolidation or pulmonary edema. No pleural effusion or pneumothorax. Cardiac and mediastinal contours are normal. Bony structures are normal. XR/XR chest 2V IMPRESSION: Unremarkable examination. Electronically signed by: Carolyn Dover MD 02/13/2025 10:39 AM [facility] [place]
--- NOTE | 2025-02-13 09:23 | ECG_ITS ---
Test Reason : chest pain Blood Pressure : */* mmHG Vent. Rate : 118 BPM Atrial Rate : 118 BPM P-R Int : 112 ms QRS Dur : 70 ms QT Int : 316 ms P-R-T Axes : 35 7 -10 degrees QTcB Int : 442 ms Sinus tachycardia Minimal voltage criteria for LVH, may be normal variant ( R in aVL ) Borderline ECG No previous ECGs available Referred By: Generic ED Physician Electronically Signed By: Jed Marin
[2025-02-13 09:28] VITALS: BP 131/73; PULSE 110; RESP 20; TEMP 36.8; O2SAT 96; BMI 51.2
[2025-02-13 09:46] LABS: Strep A Nucleic Acid Negative (Negative)
[2025-02-13 10:16] LABS: Resp Syncy Virus RNA Qual PCR NEGATIVE (Negative); SARS COV2 PCR INHOUSE NEGATIVE (Negative)
--- NOTE | 2025-02-13 10:30 | ED.URI ---
HPI - URI/Sore Throat General Chief Complaint: Upper Respiratory Symptoms Stated Complaint: chest pain, sore throat Time Seen by Provider: 02/13/25 09:40 Source: patient, RN notes reviewed and old records reviewed Mode of arrival: ambulatory Limitations: no limitations History of Present Illness ED Provider: SAMIR Christy HPI Narrative: 30-year-old female without significant medical history presents to the ED due to 4 days of productive cough, sore throat, sinus pressure, nasal congestion, B/L ear pain, and mild headache. Patient reports her symptoms have been worsening over the past 2 days, and now sputum is thick gangrene. Patient states she has a sensation of chest tightness, and shortness of breath only when coughing, without chest pain or sensation of tightness / pain while at rest. Patient states she has had a decreased appetite over the last few days. Patient was recently around a co-worker who was diagnosed with pneumonia. patient reports she has been taking NyQuil for relief of her symptoms. Denies chest pain, abdominal pain, nausea, vomiting, visual changes, diarrhea, urinary symptoms Related Data Previous Rx's ?Medication ?Instructions ?Recorded doxycycline monohydrate 100 mg 100 mg PO BID 7 days #14 caps 01/14/20 capsule metronidazole 500 mg tablet 500 mg PO BID bacterial vaginosis 01/16/20 (Flagyl) 7 days #14 tabs amoxicillin 500 mg tablet 500 mg PO BID #14 tabs 09/22/20 ibuprofen 600 mg tablet 600 mg PO Q8H PRN fever or pain 09/22/20 #10 tabs azithromycin 250 mg tablet See Rx Instructions PO .COMPLEX #6 09/20/21 (Zithromax Z-Nic) tabs cetirizine 10 mg tablet (Allergy 10 mg PO DAILY #30 tabs 09/20/21 Relief (cetirizine)) hydrocodone-homatropine 5 mg-1.5 5 ml PO Q6H PRN cough #60 mL 09/20/21 mg/5 mL (5 mL) oral solution (Hycodan) ibuprofen 600 mg tablet 600 mg PO Q6-8H PRN pain #20 tabs 12/07/21 levofloxacin 500 mg tablet 500 mg PO DAILY 5 days #5 tabs 12/07/21 phenazopyridine 200 mg tablet 200 mg PO TID 2 days #5 tabs 12/07/21 (Pyridium) azithromycin 250 mg tablet See Rx Instructions PO .COMPLEX #6 09/29/23 tabs guaifenesin 1,200 mg tablet, 1,200 mg PO BID #20 tabs 09/29/23 extended release 12 hr (Mucinex) hydrocodone-homatropine 5 mg-1.5 5 ml PO Q6H PRN cough #200 mL 09/29/23 mg/5 mL (5 mL) oral solution (Hycodan) amoxicillin 500 mg-potassium 1 tab PO TID 10 days #30 tabs 05/22/24 clavulanate 125 mg tablet (Augmentin) ibuprofen 600 mg tablet 600 mg PO Q8H PRN fever or pain 05/22/24 #20 tabs cefuroxime axetil 250 mg tablet 250 mg PO BID #14 tabs 10/05/24 metronidazole 500 mg tablet 500 mg PO BID 7 days #14 tabs 10/07/24 ofloxacin 0.3 % ear drops 10 drp otic (ear) left DAILY 7 02/13/25 days #5 mL Allergies Allergy/AdvReac Type Severity Reaction Status Date / Time No Known Allergies (No Known Allergy Verified 02/13/25 09:31 Allergies*) Review of Systems Review of Systems: Yes all other systems are reviewed and are negative PMFSH Past Medical History Attestation statement: The following information was validated with the patient. Medical History No known health problems Social History Social History (System 12/10/21 @ 10:12 by Janey Lance) Alcohol intake: current Substance Use Type: Marijuana Advance Directives: No Advance Directives Information Provided: Yes Physical Exam Vital Signs: Vital Signs: Last Vital Signs Temp 98.3 F 02/13/25 12:10 Pulse 81 02/13/25 12:10 Resp 16 02/13/25 12:10 BP 110/77 02/13/25 12:10 Pulse Ox 98 02/13/25 12:10 O2 Del Method Room Air 02/13/25 12:10 BMI result Body Mass Index 51.2 GENERAL APPEARANCE: ?AxOx4, generally well-appearing, no acute distress. HEENT: ?NC, AT. MMM. EOMI, clear conjunctiva, oropharynx with mild erythema, no edema, no tonsilar edema or exudates noted, right ear without erythema of the external canal, tympanic membrane with appropriate light reflex, no evidence of bulge or fluid, left ear with mild erythema of the external ear canal, tympanic membrane with appropriate light reflex, no bulge, erythema or dullness noted, no air-fluid levels or signs of perforation, no drainage from the ear noted, no mastoid tenderness, erythema or edema noted NECK: ?Supple without lymphadenopathy.? No stiffness or restricted ROM. HEART:? Normal rate and regular rhythm, normal S1/S2, no m/r/g LUNGS:? CTAB, moving air well. No crackles or wheezes are heard. ABDOMEN: ?Soft, nontender, nondistended with good bowel sounds heard. BACK: No CVAT, no obvious deformity. EXTREMITIES: ?Without cyanosis, clubbing or edema. NEUROLOGICAL: ?Grossly nonfocal. Alert and oriented, moving all 4 extremities. Observed to ambulate with normal gait. Skin: ?Warm and dry without any rash. Medications Administered Discontinued Medications Generic Name Dose Route Start Last Admin Trade Name Ridgeq PRN Reason Stop Dose Admin Acetaminophen 975 mg 02/13/25 10:29 02/13/25 11:14 Acetaminophen 325 Mg Tablet PO 02/13/25 10:30 975 mg ONCE ONE Administration Lactated Ringer's 1,000 mls @ 999 mls/hr 02/13/25 10:29 02/13/25 12:11 Lr IV 02/13/25 11:29 Infused .Q1H1M ONE Infusion Ibuprofen 400 mg 02/13/25 10:29 02/13/25 11:14 Ibuprofen 400 Mg Tablet PO 02/13/25 10:30 400 mg ONCE ONE Administration Medical Decision Making Medical Decision Making [facility] Narrative: 30-year-old female without significant medical history presents to the ED due to 4 days of productive cough, sore throat, sinus pressure, nasal congestion, B/L ear pain, and mild headache that has worsened over the last 2 days. Patient with sensation of chest tightness, and shortness of breaths only while coughing, no chest pain / tightness or shortness of breath while at rest or when ambulating. VS on initial observation - BP 131/73, pulse rate of 110, respiratory rate of 20, afebrile with oral temp of 98.3?, O2 saturation 96% on room air. EKG reveals sinus tachycardia without signs of acute ischemia, patient with chest tightness that began 2 days ago, no true chest pain Labs without leukocytosis/ leukopenia, left shift of 80.1, no electrolyte abnormalities CXR WNL Viral serology negative, rapid strep negative Patient with 4 days of URI symptoms and B/L ear pain. patient does have mild erythema of posterior oropharynx, and erythematous left ear canal without edema of the canal or evidence of a bulging / perforated TM. No expiratory wheeze or rhonchi noted on lung exam. Patient was medicated in the department with 1L IV fluids, 975 mg p.o. Tylenol, 400 mg p.o. ibuprofen with improvement of headache and ear pain. Patient will be discharged with 7 day course of ofloxacin drops for otitis externa. Patient without expiratory wheeze, CXR WNL, without leukocytosis, afebrile, no indication for antibiotics at this time. patient does not have primary care doctor at this time, I counseled patient on strict return precautions and will provide referral for her to call and follow up with to become established with primary care. Patient well enough to go home for self-care today and is in agreement with the plan. VS on re-evaluation- BP 110/77, pulse rate of 81, respiratory rate of 16, afebrile with oral temp of 98.3?, O2 saturation 98% on room air. Differential Diagnosis Differential Diagnoses: The differential diagnosis associated with the presentation includes Pneumonia COVID Flu RSV Strep pharyngitis Otitis media Otitis externa Viral illness Admission/Observation Consideration of admission/observation: Escalation of care including admission/observation considered I considered admission however patient without leukocytosis, no evidence of hypoxia, tachypnea, tachycardia, no indication for admission at this time Lab Data MDM Lab Attestation statement: I reviewed the patient's lab results. 02/13/25 11:01 02/13/25 11:01 Labs: Lab Results 02/13/25 02/13/25 Range/Units 09:34 11:01 WBC 8.8 (4.8-10.8) X10*3/uL RBC 4.56 (4.20-5.50) X10*6/uL Hgb 13.6 (12.0-16.0) g/dl Hct 40.5 (37.0-47.0) % MCV 88.8 (80.0-98.0) fL MCH 29.8 (27.0-33.0) pg MCHC 33.6 (31.0-35.0) g/dl RDW 12.7 (11.0-16.0) % Plt Count 287 (160-400) X10*3/uL MPV 10.2 (9.4-12.3) fL Immature Gran % (Auto) 0.3 (0.0-0.4) % Neut % (Auto) 80.1 H (45-73) % Lymph % (Auto) 11.0 L (20-40) % Christian % (Auto) 5.9 (2-11) % Eos % (Auto) 1.9 (0-4) % Baso % (Auto) 0.8 (0-2) % Lymph # (Auto) 1.0 L (1.2-4.9) X10*3/uL Christian # (Auto) 0.5 (0.1-1.2) X10*3/uL Eos # (Auto) 0.2 (0.0-0.4) X10*3/uL Baso # (Auto) 0.1 (0.0-0.2) X10*3/uL Abs Immat Gran (auto) 0.03 (0.00-0.03) X10*3/uL Absolute Neuts (auto) 7.0 (2.0-8.3) x10*3/uL Absolute Nucleated RBC 0.000 (0.0-0.012) X10*3/uL Nucleated RBC % (auto) 0.0 (0.0-0.2) /100WBC Sodium 138 (135-145) mmol/L Potassium 4.1 (3.3-5.1) mmol/L Chloride 106 (96-108) mmol/L Carbon Dioxide 26 (22-29) mmol/L Anion Gap 10 L (12-20) BUN 10 (9-16) mg/dL Creatinine 0.67 (0.5-1.4) mg/dL Estim Creat Clear Calc 147.7 Estimated GFR > 60 Random Glucose 96 (60-115) mg/dL Calcium 8.9 (8.4-10.2) mg/dL Magnesium 1.9 (1.6-2.6) mg/dL Total Bilirubin 0.4 (0.0-1.0) mg/dL AST 21 (5-31) U/L ALT 26 (0-31) U/L Alkaline Phosphatase 72 (39-117) U/L Total Protein 7.4 (6.5-8.0) g/dL Albumin 4.2 (3.5-5.0) g/dL Influenza Type A (PCR) NEGATIVE (Negative) Influenza Type B (PCR) NEGATIVE (Negative) RSV RNA Qual (PCR) NEGATIVE (Negative) SARS-CoV-2 RNA (RT-PCR) NEGATIVE (Negative) S. pyogenes GrpA NIRALI Negative (Negative) Independent Interpretation I performed an independent interpretation of an: Plain X-Ray Interpretation: I interpreted the CXR which was negative for infiltrates, consolidations, pleural effusion, pulmonary edema, pneumothorax, I agree with the radiologist's interpretation Radiology Impression Discussion of test interpretation with radiology: I have reviewed the radiologist's reading. Radiologist Impression: CXR FINDINGS: The lungs are clear. No consolidation or pulmonary edema. No pleural effusion or pneumothorax. Cardiac and mediastinal contours are normal. Bony structures are normal. XR/XR chest 2V IMPRESSION: Unremarkable examination. Electronically signed by: Carolyn Dover MD 02/13/2025 10:39 AM [facility] Dictated By: Carolyn Dover MD Signed By: <Electronically signed by Carolyn Dover MD in OV> 02/13/25 1039 External Record Review External record reviewed: Inpatient record, Office record and Outpatient record Prescription Management I considered prescription management with: Antibiotic I considered antibiotics however patient is afebrile, no leukocytosis, CXR WNL, 4 days of symptoms, no indication for antibiotics to adjust URI symptoms, patient with mild erythema of the left ear canal, without mastoiditis, patient being discharged with 7 day course of ofloxacin drops for otitis externa Chronic Conditions Patient?s care impacted by: Other ( no known medical history) Discharge Plan Discharge Clinical Impression: Otitis externa, Viral illness Patient Disposition: Home, Self-Care Instructions: Viral Syndrome (ED) Additional Instructions: you were evaluated in the emergency department due to 4 days of productive cough, nasal congestion, sinus pressure, and bilateral ear pain. Your EKG showed a fast heartbeat without any emergent findings. Your chest x-ray was normal. Your blood work did not show any increase in white blood cell count indicative of systemic infection, evidence of anemia, or electrolyte abnormalities. Your symptoms are most consistent with a viral illness. You are being given antibiotics for left-sided ear infection. You are being prescribed a 7 day course of ofloxacin drops you will place 10 drops into the affected ear once daily. For pain management you can take 500 mg of Tylenol every 5 hours, and 400 mg of ibuprofen every 6 hours. I have provided primary care referral for you, please call their office as they will not call you and tried to become established with a primary care doctor. Please return to the emergency department if your symptoms do not improve, or worsen. Please return if you experience chest pain, shortness of breath, worsening sinus/ nasal congestion, worsening cough, fevers over 100.4? that are not managed by Tylenol/ ibuprofen, or any new/ worsening/ concerning symptoms. Prescriptions: New ofloxacin 0.3 % drops 10 drp otic (ear) left DAILY 7 Days Qty: 5 0RF No Action doxycycline monohydrate 100 mg capsule 100 mg PO BID 7 Days Qty: 14 0RF metronidazole [Flagyl] 500 mg tablet 500 mg PO BID 7 Days Qty: 14 0RF amoxicillin 500 mg tablet 500 mg PO BID Qty: 14 0RF ibuprofen 600 mg tablet 600 mg PO Q8H PRN (Reason: fever or pain) Qty: 10 0RF levofloxacin 500 mg tablet 500 mg PO DAILY 5 Days Qty: 5 0RF phenazopyridine [Pyridium] 200 mg tablet 200 mg PO TID 2 Days Qty: 5 0RF ibuprofen 600 mg tablet 600 mg PO Q6-8H PRN (Reason: pain) Qty: 20 0RF azithromycin [Zithromax Z-Nic] 250 mg tablet See Rx Instructions .ROUTE .COMPLEX Qty: 6 0RF Rx Instructions: take 500 mg today (day 1), then 250 mg for 4 days (days 2-5) cetirizine [Allergy Relief (cetirizine)] 10 mg tablet 10 mg PO DAILY Qty: 30 0RF hydrocodone-homatropine [Hycodan] 5-1.5 mg/5 mL (5 mL) syrup 5 ml PO Q6H PRN (Reason: cough) Qty: 60 0RF Rx Instructions: Partial Fill upon patient request. azithromycin 250 mg tablet See Rx Instructions .ROUTE .COMPLEX Qty: 6 0RF Rx Instructions: For 250 mg dose pack: take 500 mg today (day 1), then 250 mg for 4 days (days 2-5) guaifenesin [Mucinex] 1,200 mg tablet extended release 12hr 1,200 mg PO BID Qty: 20 0RF hydrocodone-homatropine [Hycodan] 5-1.5 mg/5 mL (5 mL) syrup 5 ml PO Q6H PRN (Reason: cough) Qty: 200 0RF Rx Instructions: Partial Fill upon patient request. amoxicillin-pot clavulanate [Augmentin] 500-125 mg tablet 1 tab PO TID 10 Days Qty: 30 0RF ibuprofen 600 mg tablet 600 mg PO Q8H PRN (Reason: fever or pain) Qty: 20 0RF cefuroxime axetil 250 mg tablet 250 mg PO BID Qty: 14 0RF metronidazole 500 mg tablet 500 mg PO BID 7 Days Qty: 14 0RF Ref[place]: [facility] [place] [facility] [Provider Group, Internal Medicine] Chandrakant Wynn PA-C [Physician Steeplechase Jockey, Internal Medicine] Yury Gamez FNP-MARITZA [Nurse Practitioner, Internal Medicine] Denia Linares PA-C [Physician Steeplechase Jockey, Internal Medicine] Print Language: Malay
[2025-02-13 11:05] LABS: MANUAL DIFF FLAG NO
[2025-02-13 11:09] LABS: Hematocrit 40.5 % (37.0-47.0); Hemoglobin 13.6 g/dl (12.0-16.0); Imm Gran Abs Auto 0.03 X10*3/uL (0.00-0.03); Imm Gran Pct Auto 0.3 % (0.0-0.4); Lymphocytes Absolute Auto 1.0 X10*3/uL (1.2-4.9); Mean Corpuscular HGB Conc 33.6 g/dl (31.0-35.0); Mean Corpuscular Hemoglobin 29.8 pg (27.0-33.0); Mean Corpuscular Volume 88.8 fL (80.0-98.0); NRBC Abs Auto 0.000 X10*3/uL (0.0-0.012); NRBC Pct Auto 0.0 /100WBC (0.0-0.2); Platelet Count 287 X10*3/uL (160-400); Red Blood Count 4.56 X10*6/uL (4.20-5.50); White Blood Count 8.8 X10*3/uL (4.8-10.8)
[2025-02-13] MEDS: Lactated Ringers 1,000 ML 999 ML IV (11:14)
--- OUTSIDE RECORDS SUMMARY | 2025-02-13 11:17 | XMS_ITS | Encounter Summary ---
Author Organization [facility] Address [address] [place] [address] Phone Care Team Providers Care Hospitalist Medical Director Name Role Phone Jered Salas MD Primary Care Provider [phone] Encounter Details Date Type Department Care Team (Late st Contact Info) Description 07/07/2011 Documentation [facility] [place] [facility] [place] [address] [place] [address] Family Medicine, Physician [address] [place], [place] [phone] Social History Tobacco Use Types Packs/Day Years Used Date Smoking Tobacco: Never Assessed Comments Unknown Sex and Gender Information Value Date Recorded Sex Assigned at Not on file Legal Sex Female 4:40 PM EDT Gender Identity Not on file Sexual Orientation Not on file documented as of this encounter Plan of Treatment Not on file documented as of this encounter Visit Diagnoses Not on filedocumented in this encounter Care Teams Hospitalist Medical Director Relationship Specialty Start Date End Date Jered Salas MD [address] [place] [address] [place] [address] PCP - General 10/07/16 06/05/22 documented as of this encounter
--- OUTSIDE RECORDS SUMMARY | 2025-02-13 11:18 | XMS_ITS | Encounter Summary ---
Author Organization [facility] Address [address] [place] [phone] Phone Care Team Providers Care Cement Loader Name Role Phone Jered Salas MD Primary Care Provider [phone] Encounter Details Date Type Department Care Team (Late st Contact Info) Description 06/05/2013 Documentation [facility] [place] [address] [place] [address] Family Medicine, Physician [address] [place], [place] [phone] Social History Tobacco Use Types Packs/Day Years [...] on filedocumented in this encounter Care Teams Cement Loader Relationship Specialty Start Date End Date Jered Salas MD [address] [place] [address] [place] [address] PCP - General 10/07/16 06/05/22 documented as of this encounter
--- OUTSIDE RECORDS SUMMARY | 2025-02-13 11:18 | XMS_ITS | Encounter Summary ---
Author Organization [facility] Address [address] [place] [phone] Phone Care Team Providers Care Vice President Of Software Engineering Name Role Phone Jered Salas MD Primary Care Provider [phone] Encounter Details Date Type Department Care Team (Late st Contact Info) Description 08/19/2011 Documentation [facility] [place] [address] [place] [address] Family Medicine, Physician [address] [place], [place] [phone] Social History Tobacco Use Types Packs/Day Years [...] on filedocumented in this encounter Care Teams Vice President Of Software Engineering Relationship Specialty Start Date End Date Jered Salas MD [address] [place] [address] [place] [address] PCP - General 10/07/16 06/05/22 documented as of this encounter
--- OUTSIDE RECORDS SUMMARY | 2025-02-13 11:18 | XMS_ITS | Encounter Summary ---
Author Organization [facility] Address [address] [place] [address] Phone Care Team Providers Care Director Of Rotc Name Role Phone Jered Salas MD Primary Care Provider [phone] Encounter Details Date Type Department Care Team (Late st Contact Info) Description 06/06/2013 Documentation [facility] [place] [address] [place] [address] Family Medicine, Physician [address] [place], [place] [phone] Social History Tobacco Use Types Packs/Day Years [...] on filedocumented in this encounter Care Teams Director Of Rotc Relationship Specialty Start Date End Date Jered Salas MD [address] [place] [address] [place] [address] PCP - General 10/07/16 06/05/22 documented as of this encounter
--- OUTSIDE RECORDS SUMMARY | 2025-02-13 11:18 | XMS_ITS | Encounter Summary ---
Author Organization [facility] Address [address] [place] [address] Phone Care Team Providers Care Testing Director Name Role Phone Jered Salas MD Primary Care Provider [phone] Encounter Details Date Type Department Care Team (Late st Contact Info) Description 07/07/2011 Documentation [facility] [place] Medicine [address] [place] [address] Family Medicine, Physician [address] [place], [place] [phone] Social History Tobacco Use Types Packs/Day Years [...] on filedocumented in this encounter Care Teams Testing Director Relationship Specialty Start Date End Date Jered Salas MD [address] [place] [address] [place] [address] PCP - General 10/07/16 06/05/22 documented as of this encounter
--- OUTSIDE RECORDS SUMMARY | 2025-02-13 11:18 | XMS_ITS | Encounter Summary ---
Author Organization [facility] Address [address] [place] [address] Phone Care Team Providers Care Qualification Engineer Name Role Phone Jered Salas MD Primary Care Provider [phone] Encounter Details Date Type Department Care Team (Late st Contact Info) Description 10/13/2016 Conversion Encounter [facility] [place] [address] [place] [address] Social History Tobacco Use Types Packs/Day Years Used Date Smoking Tobacco: Never Comments:Never smoker Comments Unknown Sex and Gender Information Value Date Recorded Sex Assigned at Not on file Legal Sex Female 4:40 PM EDT Gender Identity Not on file Sexual Orientation Not on file documented as of this encounter Plan of Treatment Not on file documented as of this encounter Visit Diagnoses Not on filedocumented in this encounter Care Teams Qualification Engineer Relationship Specialty Start Date End Date Jered Salas MD [address] [place] [address] PCP - General 10/07/16 06/05/22 documented as of this encounter
--- OUTSIDE RECORDS SUMMARY | 2025-02-13 11:18 | XMS_ITS | Clinical Summary ---
Author Organization [facility] Address [address] [place] [address] Phone Care Team Providers Care Tipple Operator Name Role Phone Unavailable Primary Care Provider Unavailabl e Immunizations Immunization Administration Dates Next Due DTaP 5 09/25/2002, 9,1997, 998,1997 H1N1 02/09/2009 HPV, Quadrivalent 04/08/2010,04/16/2009,02/10/20 09 Hep B, ped/adol 1997,1997,1997 Hib (PRP-T) 03/24/1998, 8,1997, 998 IPV 09/25/2002 Influenza Split 04/08/2010 Influenza, injectable, trivalent 12/11/2008 MMR 09/25/2002,03/24/1998 Meningococcal Conj (Menactra) MCV4P 02/09/2009 OPV 1997,1997,1997 Tdap 02/09/2009 Varicella 10/31/2007,03/24/1998 Family History Relation Name Status Comments Brother 1 Alive Brother: Alive and well, Alive and well Brother 2 Alive Brother: Alive and well, Alive and well Father Alive Father: Alive a nd well Mother Alive Mother: Alive a nd well Other Family history of Hyperlipidemia, Family history of Asthma Social History Tobacco Use Types Packs/Day Years Used Date Smoking Tobacco: Never Comments:Never smoker Comments Unknown Sex and Gender Information Value Date Recorded Sex Assigned at Not on file Legal Sex Female 4:40 PM EDT Gender Identity Not on file Sexual Orientation Not on file Last Filed Vital Signs Vital Sign Reading Time Taken Comments Blood Pressure 108/72 07/06/2011 12:00 AM EDT Pulse - - Temperature 36.6 C (97.8 F) 01/04/2010 12:00 AM EST Respiratory Rate - - Oxygen Saturation - - Inhaled Oxygen Concentration - - Weight 64.2 kg (141 lb 8 oz) 07/06/2011 12:00 AM EDT Height 151.9 cm (4' 11.8 ) 07/06/2011 12:00 AM E DT Body Mass Index 27.82 07/06/2011 12:00 AM EDT Plan of Treatment Health Maintenance Due Date Last Done Comments DTaP,Tdap,and Td Vaccines (7 - Td or Tdap) 02/09/2019 02/09/2009, 09/25/2002, 02/10/1999, Additional history exists Influenza Vaccines (#1) 2024 04/08/2010, 12/11 COVID-19 Vaccine ( season) 2024 Hepatitis B Vaccines Completed 1997, 1997, 1997 HIB Vaccines Completed 03/24/1998, 07/28, 1997, Additional history exists IPV Vaccines Completed 09/25/2002, 07/28, 1997, Additional history exists MMR Vaccines Completed 09/25/2002, 03/24/1998 Varicella Vaccines Completed 10/31/2007, 03/24/1998 Meningococcal Vaccine Aged Out 02/09/2009 No christine maykel eligible based on patient's age to complete this topic HPV Vaccines Completed 04/08/2010, 03/30, 02/09/2009 Hepatitis A Vaccines Aged Out No long er eligible based on patient's age to complete this topic Men B Vaccine Aged Out No longer elig ible based on patient's age to complete this topic Pneumococcal Vaccine Aged Out No long er eligible based on patient's age to complete this topic
[2025-02-13 11:19] LABS: Alanine Aminotransferase 26 U/L (0-31); Albumin Level 4.2 g/dL (3.5-5.0); Alkaline Phosphatase 72 U/L (39-117); Anion Gap 10 (12-20); Aspartate Amino Transferase 21 U/L (5-31); Blood Urea Nitrogen 10 mg/dL (9-16); Calcium 8.9 mg/dL (8.4-10.2); Carbon Dioxide 26 mmol/L (22-29); Chloride 106 mmol/L (96-108); Creatinine Clr Calc Pharmacy 147.7; Estimated Glomerular Filt Rate > 60; Magnesium 1.9 mg/dL (1.6-2.6); Potassium 4.1 mmol/L (3.3-5.1); Sodium 138 mmol/L (135-145); Total Protein 7.4 g/dL (6.5-8.0)
[2025-02-13 12:10] VITALS: BP 110/77; PULSE 81; RESP 16; TEMP 36.8; O2SAT 98
[2025-02-13 12:57] VITALS: BP 110/77; PULSE 81; RESP 16; TEMP 36.8; O2SAT 98
== END 2025-02-13 12:58 | disposition home or self-care (01) ==
PROVIDERS: Emergency Provider Emergency Medicine Emergency Medical Services
DX: B34.9 Viral infection, unspecified (principal); H60.92 Unspecified otitis externa, left ear; R05.9 Cough, unspecified; Z03.818 Encounter for observation for suspected exposure to other biological agents ruled out
CPT/HCPCS: 36415; 71046; 80053; 83735; 85025; 87637; 87651; 93005; 96360; 99284; J7120

== ENCOUNTER → 2025-02-13 09:23 | Outpatient (BNV) | payer SELFPAY | PROVIDERS: Emergency Provider Emergency Medicine Emergency Medical Services; Visit Provider Internal Medicine Cardiovascular Disease | DX: R00.0 Tachycardia, unspecified (principal) | CPT/HCPCS: 93010 ==

== ENCOUNTER → 2025-02-13 10:19 | Outpatient (BNV) | payer SELFPAY | PROVIDERS: Emergency Provider Emergency Medicine Emergency Medical Services; Visit Provider Radiology Diagnostic Radiology | DX: R05.9 Cough, unspecified (principal) | CPT/HCPCS: 71046 ==